=== PATIENT | female | born 1955 | race Caucasian/White ===

== ENCOUNTER 2022-01-19 08:31 | Outpatient (REF) | payer MEDICARE, SELFPAY ==
[2022-01-19 11:03] LABS: MANUAL DIFF FLAG NO
[2022-01-19 11:15] LABS: Basophils Percent Auto 0.5 % (0-2); Eosinophils Absolute Auto 0.1 X10*3/uL (0.0-0.4); Eosinophils Percent Auto 0.8 % (0-4); Hemoglobin 14.2 g/dl (12.0-16.0); Imm Gran Abs Auto 0.04 X10*3/uL (0.00-0.03); Imm Gran Pct Auto 0.5 % (0.0-0.4); Lymphocytes Absolute Auto 3.1 X10*3/uL (1.2-4.9); Lymphocytes Percent Auto 38.8 % (20-40); Mean Corpuscular HGB Conc 33.8 g/dl (31.0-35.0); Mean Corpuscular Hemoglobin 31.1 pg (27.0-33.0); Mean Corpuscular Volume 92.1 fL (80.0-98.0); Mean Platelet Volume 9.5 fL (9.4-12.3); Monocytes Absolute Auto 0.5 X10*3/uL (0.1-1.2); Monocytes Percent Auto 6.5 % (2-11); Neutrophils Absolute Auto 4.2 x10*3/uL (2.0-8.3); Neutrophils Percent Auto 52.9 % (45-73); Platelet Count 312 X10*3/uL (160-400); Red Blood Count 4.56 X10*6/uL (4.20-5.50); Red Cell Distribution Width 13.3 % (11.0-16.0)
[2022-01-19 11:19] LABS: Appearance Urine CLEAR; Color Urine YELLOW; Glucose Urine UA NEG (NEG); Leukocyte Esterase Urine NEG (NEG); Nitrite Urine NEG (NEG); Urine Blood NEG (NEG); Urine Ketones NEG (NEG); Urine Protein NEG (NEG-TRACE)
[2022-01-19 11:25] LABS: Alanine Aminotransferase 17 U/L (0-31); Albumin Level 4.1 g/dL (3.5-5.0); Alkaline Phosphatase 75 U/L (39-117); Anion Gap 10 (12-20); Aspartate Amino Transferase 17 U/L (5-31); Bilirubin Total 0.3 mg/dL (0.0-1.0); Blood Urea Nitrogen 18 mg/dL (9-16); Carbon Dioxide 29 mmol/L (22-29); Chloride 103 mmol/L (96-108); Cholesterol 299 mg/dL; Estimated Glomerular Filt Rate 59; Glucose Fasting 109 mg/dL (60-99); HDL Cholesterol 50 mg/dL; LDL Cholesterol Calculated 175 mg/dl; Potassium 4.1 mmol/L (3.3-5.1); Sodium 138 mmol/L (135-145); Total Protein 7.6 g/dL (6.5-8.0); Triglycerides 373 mg/dL
[2022-01-19 11:51] LABS: TSH reflex Free T4 2.97 uIU/mL (0.32-4.0); Vitamin D 25-OH Total 55.4 ng/mL (>30)
== END 2022-01-19 08:32 | disposition home or self-care (01) ==
LOC: HO.HMGCLDS 08:31
PROVIDERS: PCP Internal Medicine; Visit Provider Internal Medicine
DX: Z00.01 Encounter for general adult medical examination with abnormal findings (principal); F32.A Depression, unspecified; F41.9 Anxiety disorder, unspecified; G43.909 Migraine, unspecified, not intractable, without status migrainosus; I10 Essential (primary) hypertension; E78.2 Mixed hyperlipidemia
CPT/HCPCS: 36415; 80053; 80061; 81003; 82306; 84443; 85025

== ENCOUNTER → 2022-03-04 07:02 | Outpatient (BNVA) | payer MEDICARE, SELFPAY | PROVIDERS: PCP Internal Medicine; Referring Provider Internal Medicine; Visit Provider Nurse Practitioner | DX: R19.5 Other fecal abnormalities (principal) | CPT/HCPCS: 99202 ==

== ENCOUNTER 2022-04-25 10:06 | Outpatient (REF) | payer MEDICARE, SELFPAY ==
[2022-04-25 11:27] LABS: Estimated Average Glucose 108 mg/dL; Hemoglobin A1c % 5.4 %
[2022-04-25 11:56] LABS: Alanine Aminotransferase 27 U/L (0-31); Aspartate Amino Transferase 25 U/L (5-31); Cholesterol 220 mg/dL; Glucose Fasting 105 mg/dL (60-99); HDL Cholesterol 46 mg/dL; LDL Cholesterol Calculated 104 mg/dl; Triglycerides 353 mg/dL
== END 2022-04-25 10:07 | disposition home or self-care (01) ==
LOC: HO.HMGCLDS 10:06
PROVIDERS: PCP Internal Medicine; Visit Provider Internal Medicine
DX: I10 Essential (primary) hypertension (principal); E78.2 Mixed hyperlipidemia; R73.01 Impaired fasting glucose
CPT/HCPCS: 36415; 80061; 82947; 83036; 84450; 84460

== ENCOUNTER 2022-09-01 07:59 | Outpatient (REF) | payer MEDICARE, SELFPAY ==
--- NOTE | ~2022-09-01 | MM_ITS ---
EXAMINATION: MM SCREENING DIGITAL BREAST TOMOSYNTHESIS, BILATERAL CLINICAL INFORMATION: Screening. Asymptomatic. History of bilateral breast cancer with lumpectomies. COMPARISON: Mammography: April 20, 2017 and studies dating back to July 08, 2014 TECHNIQUE: Digital breast tomosynthesis is performed in both the craniocaudal and mediolateral oblique views along with computer-aided detection (CAD). Synthesized 2D images are generated from the tomosynthesis. FINDINGS: There are scattered areas of fibroglandular density (ACR BI-RADS breast composition Category b). There are no new significant masses, abnormal calcifications, or other abnormalities. Bilateral postsurgical change again seen. MM/MM tomosynthesis screening BI IMPRESSION: No significant changes from prior exam. ASSESSMENT: BI-RADS 2: Benign RECOMMENDATION: Routine annual mammography screening. This patient's information was entered into a reminder system with a target due date for their next mammogram.
== END 2022-09-01 08:00 | disposition home or self-care (01) ==
LOC: HO.MAMMO 07:59
PROVIDERS: Visit Provider Internal Medicine
DX: Z12.31 Encounter for screening mammogram for malignant neoplasm of breast (principal)
CPT/HCPCS: 77063; 77067

== ENCOUNTER 2023-01-16 08:15 | Outpatient (REF) | payer MEDICARE, SELFPAY ==
[2023-01-16 12:40] LABS: Alanine Aminotransferase 16 U/L (0-31); Anion Gap 14 (12-20); Aspartate Amino Transferase 19 U/L (5-31); Blood Urea Nitrogen 18 mg/dL (9-16); Calcium 9.4 mg/dL (8.4-10.2); Carbon Dioxide 29 mmol/L (22-29); Chloride 102 mmol/L (96-108); Cholesterol 258 mg/dL; Estimated Glomerular Filt Rate 60; Glucose Fasting 104 mg/dL (60-99); HDL Cholesterol 61 mg/dL; LDL Cholesterol Calculated 143 mg/dl; Sodium 141 mmol/L (135-145); Triglycerides 273 mg/dL
== END 2023-01-16 08:16 | disposition home or self-care (01) ==
LOC: HO.HMGCLDS 08:15
PROVIDERS: Internal Medicine; PCP Internal Medicine; Visit Provider Internal Medicine
DX: I10 Essential (primary) hypertension (principal); R73.01 Impaired fasting glucose; E78.2 Mixed hyperlipidemia
CPT/HCPCS: 36415; 80048; 80061; 84450; 84460

== ENCOUNTER 2023-05-15 09:35 | Outpatient (REF) | payer MEDICARE, SELFPAY ==
[2023-05-15 12:34] LABS: Alanine Aminotransferase 17 U/L (0-31); Alkaline Phosphatase 74 U/L (39-117); Anion Gap 15 (12-20); Aspartate Amino Transferase 19 U/L (5-31); Bilirubin Direct 0.1 mg/dL (0.0-0.5); Bilirubin Total 0.5 mg/dL (0.0-1.0); Blood Urea Nitrogen 13 mg/dL (9-16); Calcium 9.9 mg/dL (8.4-10.2); Carbon Dioxide 27 mmol/L (22-29); Chloride 103 mmol/L (96-108); Cholesterol 214 mg/dL; Estimated Glomerular Filt Rate 57; Glucose Fasting 100 mg/dL (60-99); HDL Cholesterol 54 mg/dL; LDL Cholesterol Calculated 111 mg/dl; Potassium 3.8 mmol/L (3.3-5.1); Sodium 141 mmol/L (135-145); Total Protein 7.6 g/dL (6.5-8.0); Triglycerides 249 mg/dL; Vitamin D 25-OH Total 55.5 ng/mL (>30)
== END 2023-05-15 09:36 | disposition home or self-care (01) ==
LOC: HO.HMGCLDS 09:35
PROVIDERS: PCP Internal Medicine; Visit Provider Internal Medicine
DX: I10 Essential (primary) hypertension (principal); E78.2 Mixed hyperlipidemia; N95.9 Unspecified menopausal and perimenopausal disorder; R73.01 Impaired fasting glucose
CPT/HCPCS: 36415; 80048; 80061; 80076; 82306

== ENCOUNTER 2023-05-18 15:04 | Outpatient (AMB) | payer MEDICARE, SELFPAY ==
--- NOTE | 2023-05-18 15:36 | A.OFFPC_ITS ---
Vital Signs 05/18/23 15:39 Height 5 ft Weight 148 lb BMI 28.9 BP 150/90 H Blood Pressure Location Lt brachial Position Sitting Pulse 68 Pulse Source Pulse Oximeter Pulse Oximetry (%) 96 Oxygen Delivery Method Room Air Intake Visit Reasons: 3 month f/u HTN Intake Note: Pt is here today for her 3 mo. f/u HTN Allergies codeine [CODEINE] Adverse Reaction (Intermediate, Verified 10/04/23 13:30) N/V oxycodone [From PERCOCET] Adverse Reaction (Intermediate, Verified 10/04/23 13:30) N/V penicillin Allergy (Unknown, Uncoded 10/04/23 13:30) rash, hive Medication List - Last Reconciled 05/18/23 by Neelam Nobles MD ascorbic acid (vitamin C) 1 g orally Patient takes PRN when she feels a cold starting; cholecalciferol (vitamin D3) 50 mcg PO DAILY losartan 50 mg PO DAILY metoprolol succinate ER 50 mg PO DAILY xulswoby-vpl-qzgl-FA-lutein 8 mg iron-400 mcg-300 mcg (Centrum Silver Women) 1 tab PO DAILY rosuvastatin 5 mg PO DAILY sumatriptan succinate 100 mg PO Q2-4H PRN Tobacco use date assessed: 05/18/23 Fall risk assessment: No Falls in past year Last assessed Fall Risk: 05/18/23 Dental Screening Dental Screen Date: 05/18/23 Did you have a dental visit in the last 12 months?: Yes Did you have a dental problem in the last 6 months where you did not have access to dental care?: No Was dental information given to patient?: Patient has dentist HPI 3 month f/u HTN HPI Details 67-year-old lady here today for follow-u p on her hypertension currently taking losartan 50 mg daily, metoprolol succinate ER 50 mg daily. Blood pressure today is higher than last check. Recent fasting labs done showed electrolytes within normal limits as well as liver enzymes and cholesterol levels, except for triglycerides which are still high. Patient states that she has been under lot of stress lately as her brother is currently in the custodial refusing all treatment, and her older sister was a victim of an internet scam. She also has not been eating well, and no regular exercise. [facility] Medical History Positive colorectal cancer screening using Cologuard test Impaired fasting glucose ADD (attention deficit disorder) History of bilateral breast cancer Bilateral hearing loss Migraine headache Anxiety and depression Essential hypertension Mixed dyslipidemia Surgical History History of lumpectomy of left breast History of appendectomy History of lumpectomy of right breast Family History Father Mental health disorder Lung cancer Parkinson's disease Social History Household Members: None Housing: House Are you a primary restorative care technician to a significant other at home: No Do you presently have visiting nurse or other home services: No Patient Tobacco Use Status: Former Tobacco user Tobacco use type: Cigarette e-Cigarette/Vaping Use: Former Use service: No Current occupational status: retired Cognitive needs: No Hearing needs: No Vision needs: Yes Questionnaire PHQ-9 Over the last 2 weeks, how often have you been bothered by any of the following problems? Depression Screening Interpretation: Negative Source: Developed by Drs. Talon Grant, Ambrocio Linder and colleagues, with an educational keyana from [employer]. Thrive Questionnaire Date Thrive assessed: 04/26/22 AUDIT C Alcohol Use Questionnaire (AUDIT-C) 1. How often do you have a drink containing alcohol?: Monthly or less 2. How many drinks containing alcohol do you have on a typical day when you are drinking?: 1 or 2 3. How often do you have six or more drinks on one occasion?: Never Total Score: 1 FRANCISCO-7 AMB Questionnaire FRANCISCO-7 Date FRANCISCO - 7 assessed: 04/26/22 Source: Developed by Drs. Talon Grant, Bekah Riojas, Ambrocio Perez and colleagues, with an educational keyana from [employer]. Review of Systems Const Denies fatigue and Denies headache(s) ENT Denies vertigo, Denies headache(s), Reports hearing loss (Wears hearing aids), Denies nasal congestion and Denies disequilibrium Card Denies chest pain, Denies rapid heart rate, Denies irregular heart rhythm and Denies dyspnea Resp Denies cough and Denies dyspnea GI Denies abdominal pain, Denies change in bowel habits, Denies heartburn and Denies nausea Reports no additional complaints Musc Reports no additional complaints Neuro Denies vertigo, Denies headache(s), Denies Sensory deficit (Neuro) and Denies disequilibrium Psych Reports as per HPI Endo Reports no additional complaints and Denies fatigue Physical exam (Primary Care) Vital Signs: Last Vital Signs Pulse 68 05/18/23 15:39 BP 150/90 H 05/18/23 15:39 Pulse Ox 96 05/18/23 15:39 Oxygen Delivery Method Room Air 05/18/23 15:39 BMI result Body Mass Index 28.9 Tobacco/Smoking Status: Tobacco use Status Tobacco use date assessed 05/18/23 05/18/23 15:41 Patient Tobacco Use Status Former Tobacco user 05/18/23 15:38 Tobacco use type Cigarette 05/18/23 15:38 e-Cigarette/Vaping Use Former Use 05/18/23 15:38 Depression Screening Interpretation: Negative Thrive Assessment: Date of Thrive Assessment Date Thrive assessed 04/26/22 05/18/23 15:38 Const Other: Alert oriented x3, no acute distress noted ambulatory normal gait HENMT Head: Yes normocephalic Ears: hearing grossly impaired (Wears hearing aids) General nose exam: Normal external nose present and No nasal discharge present Face and sinus: Yes face symmetric Mouth: moist mucous membranes Eyes General: appearance normal, both eyes and all related structures Neck Other: Supple, no lymphadenopathy, thyroid gland nonpalpable Resp Auscultation: clear to auscultation bilaterally Cardio Other: S1-S2 present regular rate and rhythm GI Other: Normal bowel sounds, soft, nontender, no mass palpated Skin General skin exam: no rashes or lesions noted Neuro Sensory Exam: No Sensory deficit (Neuro) Extrem General: Yes full ROM, Yes no joint enlargement, Yes no pedal edema and Yes normal gait Psych Appearance: grossly normal and well kempt Mental Status: mental status grossly normal Speech and movement: Normal speech and movement present Affect: normal affect Attitude: cooperative Results Reviewed Results Reviewed: ENTERED: 05/15/23-68 MARCELLA HANKS: ORDERED: Liver Panel, Met Prof Fast, Lipid Panel, Vitamin D 25-OH Test Result Flag Reference Site Sodium 141 135-145 mmol/L Potassium 3.8 3.3-5.1 mmol/L CL 103 96-108 mmol/L CO2 27 22-29 mmol/L Gap 15 12-20 BUN 13 9-16 mg/dL Creat 0.97 0.5-1.4 mg/dL EGFR 57 NOTE: For [place] individuals, multiply the result by 1.210. Chronic Kidney Disease: Estimated GFR < 60 mL/min/1.73m2 Severe Kidney Disease: Estimated GFR < 15 mL/min/1.73m2 FBS 100 H 60-99 mg/dL A fasting glucose from 100-125 mg/dl is considered impaired (pre-diabetes). CA 9.9 8.4-10.2 mg/dL Total Bili 0.5 0.0-1.0 mg/dL Direct Bili 0.1 0.0-0.5 mg/dL AST (GOT) 19 5-31 U/L ALT (GPT) 17 0-31 U/L Protein, Total 7.6 6.5-8.0 g/dL Alb 4.0 3.5-5.0 g/dL Triglyceride 249 mg/dL Desirable Triglyceride: less than 150 mg/dL Borderline High Triglyceride 150-199 mg/dL High Triglyceride: 200-499 mg/dL Very High Triglyceride: greater than or equal to 5OO mg/dL Chol 214 mg/dL Desirable Cholesterol: less than 200 mg/dL Borderline High Cholesterol: 200-239 mg/dL High Cholesterol: greater than 239 mg/dL LDL Calculated 111 mg/dl Desirable LDL: less than 100 mg/dL Near Optimal/Above Optimal LDL: 110-129 mg/dL Borderline High LDL: 130-159 mg/dL High LDL: 160-189 mg/dL Very High LDL: greater than or equal to 190 mg/dL HDL 54 mg/dL Desirable HDL: greater than 40 mg/dL Note: This HDL assay may give artificially low results in patients with liver disease. Alk Phos 74 39-117 U/L Vit D 25-OH Tot 55.5 >30 ng/mL Health Based Reference Values* < 20 ng/mL Deficient 20-30 ng/mL Insufficient > 30 ng/mL Sufficient Assessment and Plan Assessment & Plan (1) Essential hypertension: Code(s): I10 - Essential (primary) hypertension Plan: Blood pressure not at goal of less than 130/80. Will increase dose of losartan to 100 mg taken once a day in the morning and continue with metoprolol 50 mg once at night. Reinforced importance of following a low sodium diet, getting regular exercise, and lowering stress levels. Follow-up in 3 months (2) Mixed dyslipidemia: Code(s): E78.2 - Mixed hyperlipidemia Plan: Reviewed recent fasting lipid profile with patient with levels within normal limits . Continue with rosuvastatin 5 mg daily , in addition to adherence to low-cholesterol diet and regular exercise, at least 30 minutes 3 to 4 times a week. Advised patient to make healthy food choices, eat more fruits, vegetables, whole grains, wild caught fish and low-fat dairy. Limit amount of meat and fried or fatty food products, as well as processed foods and fast foods. Medications: Changed From losartan take in am 50 mg PO DAILY 30 tabs 1RF To losartan take in am 100 mg PO DAILY 90 tabs 1RF Coding Level of Care Code Est Pt Level 3 (89972) Diagnoses Essential hypertension I10 Mixed dyslipidemia E78.2
[2023-05-18 15:39] VITALS: BP 150/90; PULSE 68; O2SAT 96; BMI 28.9
== END 2023-05-18 16:02 | disposition home or self-care (01) ==
PROVIDERS: PCP Internal Medicine; Visit Provider Internal Medicine
DX: I10 Essential (primary) hypertension (principal); E78.2 Mixed hyperlipidemia
CPT/HCPCS: 99213

== ENCOUNTER 2023-08-16 12:02 | Outpatient (REF) | payer MEDICARE, SELFPAY ==
[2023-08-16 14:07] LABS: Alanine Aminotransferase 17 U/L (0-31); Aspartate Amino Transferase 20 U/L (5-31)
== END 2023-08-16 12:03 | disposition home or self-care (01) ==
LOC: HO.HMGCLDS 12:02
PROVIDERS: PCP Internal Medicine; Visit Provider Internal Medicine
DX: R73.01 Impaired fasting glucose (principal); E78.2 Mixed hyperlipidemia; N95.9 Unspecified menopausal and perimenopausal disorder; I10 Essential (primary) hypertension
CPT/HCPCS: 36415; 84450; 84460

== ENCOUNTER 2023-08-18 12:51 | Outpatient (AMB) | payer MEDICARE, SELFPAY ==
[2023-08-18 12:52] VITALS: BP 152/88; PULSE 73; O2SAT 97; BMI 29.9
--- NOTE | 2023-08-18 12:53 | A.OFFPC_ITS ---
Vital Signs 08/18/23 12:52 Height 5 ft Weight 153 lb BMI 29.9 BP 152/88 H Blood Pressure Location Lt brachial Position Sitting Pulse 73 Pulse Source Pulse Oximeter Pulse Oximetry (%) 97 Intake Visit Reasons: 3 Month F/Up Intake Note: pt is here for 3 month f/u Manager Technical Required: No Accompanied by: Self / Same As Patient Allergies codeine [CODEINE] Adverse Reaction (Intermediate, Verified 08/18/23 13:21) N/V oxycodone [From PERCOCET] Adverse Reaction (Intermediate, Verified 08/18/23 13:21) N/V penicillin Allergy (Unknown, Uncoded 08/18/23 13:21) rash, hive Medication List - Last Reconciled 08/18/23 by Neelam Nobles MD ascorbic acid (vitamin C) 1 g orally Patient takes PRN when she feels a cold starting; cholecalciferol (vitamin D3) 50 mcg PO DAILY losartan 100 mg PO DAILY metoprolol succinate ER 50 mg PO DAILY mkefdzij-mhq-weof-FA-vit K-lut 8 mg iron-400 mcg-50 mcg (Centrum Silver Women) 1 tab PO DAILY rosuvastatin 5 mg PO DAILY sumatriptan succinate 100 mg PO Q2-4H PRN Tobacco use date assessed: 05/18/23 Fall risk assessment: No Falls in past year Last assessed Fall Risk: 08/18/23 Dental Screening Dental Screen Date: 08/18/23 Did you have a dental visit in the last 12 months?: Yes Did you have a dental problem in the last 6 months where you did not have access to dental care?: No Was dental information given to patient?: Patient has dentist HPI 3 Month F/Up HPI Details 67-year-old lady with hypertension, and dyslipidemia, here today her follow-up. 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 Blood pressure today is little elevated, patient states that she has been taking her metoprolol and losartan as directed. Denies any chest pain, no dizziness or lightheadedness. [facility] Medical History Positive colorectal cancer screening using Cologuard test Impaired fasting glucose ADD (attention deficit disorder) History of bilateral breast cancer Bilateral hearing loss Migraine headache Anxiety and depression Essential hypertension Mixed dyslipidemia Surgical History History of lumpectomy of left breast History of appendectomy History of lumpectomy of right breast Family History Father Mental health disorder Lung cancer Parkinson's disease Social History Household Members: None Housing: House Are you a primary palliative care nurse practitioner to a significant other at home: No Do you presently have visiting nurse or other home services: No Patient Tobacco Use Status: Former Tobacco user Tobacco use type: Cigarette e-Cigarette/Vaping Use: Former Use service: No Current occupational status: retired Cognitive needs: No Hearing needs: No Vision needs: Yes Questionnaire PHQ-9 Over the last 2 weeks, how often have you been bothered by any of the following problems? 1. Little interest or pleasure in doing things: several days 2. Feeling down, depressed, or hopeless: not at all 3. Trouble falling or staying asleep, or sleeping too much: several days 4. Feeling tired or having little energy: several days 5. Poor appetite or overeating: several days 6. Feeling bad about yourself - or that you are a failure or have let yourself or your family down: not at all 7. Trouble concentrating on things, such as reading the newspaper or watching television: not at all 8. Moving or speaking so slowly that other people could have noticed. Or the opposite - being so fidgety or restless that you have been moving around a lot more than usual: not at all 9. Thoughts that you would be better off or of hurting yourself in some way: not at all Total score: 4 Depression Screening Interpretation: Negative 07935 - PHQ-9 Billing: Yes Source: Developed by Drs. Talon Grant, Bekah Riojas, Ambrocio Perez and colleagues, with an educational keyana from [employer] Thrive Questionnaire Date Thrive assessed: 08/18/23 I am a: Patient What is your living situation today?: I have a steady place to live Within the past 12 months, did the food you bought not last and you didn't have the money to get more?: Never true Within the past 12 months, did you worry whether your food would run out before you got money to buy more?: Never true Do you have trouble paying for medicines?: No Do you have trouble getting transportation to medical appointments?: No Do you have trouble paying your heating and electricity bill?: No Do you have trouble taking care of your child, family member or friend?: No Do you have trouble with day-to-day activities such as bathing, preparing meals, shopping, managing finances, etc.?: No Are you currently unemployed and looking for a job?: No Are you interested in more education?: No FRANCISCO-7 AMB Questionnaire FRANCISCO-7 Date FRANCISCO - 7 assessed: 08/18/23 Feeling nervous, anxious, or on edge: 1 = Several days Not being able to stop or control worryin = Several days Worrying too much about different things: 1 = Several days Trouble relaxin = Not at all Being so restless that it is hard to sit still: 0 = Not at all Becoming easily annoyed or irritable: 0 = Not at all Feeling afraid as if something awful might happen: 0 = Not at all Total FRANCISCO-7 score (0-4 normal; 5-9 mild; 10-14 moderate; 15-21 severe): 3 Source: Developed by Drs. Talon Grant, Bekah Riojas, Ambrocio Perez and colleagues, with an educational keyana from [employer] FRANCISCO-7 Assessment Billing FRANCISCO-7 Assessment Tool: FRANCISCO-7 Assessment 53100 Review of Systems Const Reports difficulty sleeping, Denies fatigue, Denies headache(s) and Denies poor appetite ENT Denies vertigo, Denies headache(s), Reports hearing loss (Wears hearing aids), Denies nasal congestion and Denies disequilibrium Card Denies chest pain, Denies rapid heart rate, Denies irregular heart rhythm and Denies dyspnea Resp Denies cough and Denies dyspnea GI Denies abdominal pain, Denies melena, Denies bloating, Denies hematochezia, Denies change in bowel habits, Denies heartburn and Denies nausea Reports no additional complaints Musc Reports no additional complaints Neuro Denies vertigo, Denies headache(s), Denies Sensory deficit (Neuro) and Denies disequilibrium Psych Reports as per HPI Endo Reports no additional complaints and Denies fatigue Pablo/Lymph Denies easy bleeding and Denies easy bruising Physical exam (Primary Care) Vital Signs: Last Vital Signs Pulse 73 08/18/23 12:52 BP 152/88 H 08/18/23 12:52 Pulse Ox 97 08/18/23 12:52 BMI result Body Mass Index 29.9 Tobacco/Smoking Status: Tobacco use Status Tobacco use date assessed 05/18/23 08/18/23 12:53 Patient Tobacco Use Status Former Tobacco user 08/18/23 12:53 Tobacco use type Cigarette 08/18/23 12:53 e-Cigarette/Vaping Use Former Use 08/18/23 12:53 PHQ-9: PHQ-9 Score PHQ-9: Total score 4 08/18/23 13:39 Depression Screening Interpretation: Negative Thrive Assessment: Date of Thrive Assessment Date Thrive assessed 08/18/23 08/18/23 13:39 Const Other: Alert oriented x3, no acute distress noted ambulatory normal gait HENMT Head: Yes normocephalic Ears: hearing grossly impaired (Wears hearing aids) General nose exam: Normal external nose present and No nasal discharge present Face and sinus: Yes face symmetric Mouth: moist mucous membranes Eyes General: appearance normal, both eyes and all related structures Neck Other: Supple, no lymphadenopathy, thyroid gland nonpalpable Resp Auscultation: clear to auscultation bilaterally Cardio Other: S1-S2 present regular rate and rhythm GI Other: Normal bowel sounds, soft, nontender, no mass palpated Skin General skin exam: no rashes or lesions noted Neuro Sensory Exam: No Sensory deficit (Neuro) Extrem General: Yes full ROM, Yes no joint enlargement, Yes no pedal edema and Yes normal gait Psych Appearance: grossly normal and well kempt Mental Status: mental status grossly normal Speech and movement: Normal speech and movement present Affect: normal affect Attitude: cooperative Assessment and Plan Assessment & Plan (1) Essential hypertension: Code(s): I10 - Essential (primary) hypertension Plan: Will discontinue losartan and switched to losartan-HCTZ 100-12.5 mg per tablet to take once a day in the morning, continue with metoprolol succinate ER 50 mg at bedtime, Blood pressure goal is less than 130/80. Reinforced importance of following a low sodium diet, getting regular exercise, and lowering stress levels. Schedule follow-up office visit in 1 month to check blood pressure, advised to do fasting beta month basic metabolic panel, lipids least a couple of days prior to office visit (2) Mixed dyslipidemia: Code(s): E78.2 - Mixed hyperlipidemia Plan: Continue with rosuvastatin, will check fasting lipids prior to next appointment in a month (3) Impaired fasting glucose: Code(s): R73.01 - Impaired fasting glucose Plan: Your fasting blood sugars were elevated above 100 mg/dL. Impaired glucose metabolism O2 at risk for developing diabetes mellitus type 2, as well as heart attack and stroke later on. Lifestyle changes at just weight loss, healthy eating habits, and regular exercise are important, and can prevent the progression to diabetes (4) Acute anxiety: Code(s): F41.9 - Anxiety disorder, unspecified Plan: Prescription sent for hydroxyzine 25 mg, take 1/2-1 tablet at bedtime as needed for acute episodes of anxiety and may help with difficulty sleeping. Orders: Orders Vitamin D 25-OH Total 1 Month E78.2 - Mixed hyperlipidemia, I10 - Essential (primary) hypertension, R73.01 - Impaired fasting glucose Basic Metabolic Panel Fasting 1 Month E78.2 - Mixed hyperlipidemia, I10 - Essential (primary) hypertension, R73.01 - Impaired fasting glucose Lipid Panel 1 Month E78.2 - Mixed hyperlipidemia, I10 - Essential (primary) hypertension, R73.01 - Impaired fasting glucose Alanine Aminotransferase 1 Month E78.2 - Mixed hyperlipidemia, I10 - Essential (primary) hypertension, R73.01 - Impaired fasting glucose Aspartate Amino Transferase 1 Month E78.2 - Mixed hyperlipidemia, I10 - Essential (primary) hypertension, R73.01 - Impaired fasting glucose Medications: New losartan-hydrochlorothiazide 100-12.5 mg 1 tab PO DAILY 90 tabs 1RF I10 - Essential (primary) hypertension Refilled hydroxyzine HCl 25 mg PO BEDTIME PRN 30 tabs 0RF itching F32.A - Depression, unspecified, F41.9 - Anxiety disorder, unspecified rosuvastatin 5 mg PO DAILY 90 tabs 4RF metoprolol succinate ER 50 mg PO DAILY 90 tabs 4RF G43.909 - Migraine, unspe cified, not intractable, without status migrainosus, I10 - Essential (primary) hypertension Discontinued losartan take in am Discontinued Reason: Doctor's Order 100 mg PO DAILY 90 tabs 1RF Coding Level of Care Code Est Pt Level 4 (58376) Diagnoses Essential hypertension I10 Mixed dyslipidemia E78.2 Impaired fasting glucose R73.01 Acute anxiety F41.9 Additional Codes FRANCISCO-7 Assessment Billing - FRANCISCO-7 Assessment Tool: FRANCISCO-7 Assessment 36227 ([id number])
== END 2023-08-18 14:23 | disposition home or self-care (01) ==
PROVIDERS: PCP Internal Medicine; Visit Provider Internal Medicine
DX: I10 Essential (primary) hypertension (principal); E78.2 Mixed hyperlipidemia; R73.01 Impaired fasting glucose; F41.9 Anxiety disorder, unspecified
CPT/HCPCS: 99214

== ENCOUNTER 2023-10-02 10:01 | Outpatient (REF) | payer MEDICARE, SELFPAY ==
[2023-10-02 14:12] LABS: Alanine Aminotransferase 16 U/L (0-31); Anion Gap 15 (12-20); Aspartate Amino Transferase 23 U/L (5-31); Blood Urea Nitrogen 34 mg/dL (9-16); Carbon Dioxide 28 mmol/L (22-29); Chloride 98 mmol/L (96-108); Cholesterol 195 mg/dL (<200); Estimated Glomerular Filt Rate 35; Glucose Fasting 122 mg/dL (60-99); HDL Cholesterol 40 mg/dL (>40); LDL Cholesterol Calculated 94 mg/dL (<100); Sodium 137 mmol/L (135-145); Triglycerides 309 mg/dL (<150)
== END 2023-10-02 10:02 | disposition home or self-care (01) ==
LOC: HO.HMGCLDS 10:01
PROVIDERS: PCP Internal Medicine; Visit Provider Internal Medicine
DX: I10 Essential (primary) hypertension (principal); E78.2 Mixed hyperlipidemia; R73.01 Impaired fasting glucose
CPT/HCPCS: 36415; 80048; 80061; 82306; 84450; 84460

== ENCOUNTER 2023-10-04 12:49 | Outpatient (AMB) | payer MEDICARE, SELFPAY ==
--- NOTE | 2023-10-04 13:05 | A.OFFPC_ITS ---
Vital Signs 10/04/23 13:06 Height 5 ft Weight 146 lb BMI 28.5 BP 108/70 Blood Pressure Location Rt brachial Position Sitting Pulse 60 Pulse Source Pulse Oximeter Pulse Oximetry (%) 98 Oxygen Delivery Method Room Air Intake Visit Reasons: 1 month F/U CX 09/15 and R/S Intake Note: Patient here for follow up on HTN & labs Allergies codeine [CODEINE] Adverse Reaction (Intermediate, Verified 10/04/23 13:30) N/V oxycodone [From PERCOCET] Adverse Reaction (Intermediate, Verified 10/04/23 13:30) N/V penicillin Allergy (Unknown, Uncoded 10/04/23 13:30) rash, hive Medication List - Last Reconciled 10/04/23 by Neelam Nobles MD ascorbic acid (vitamin C) 1 g orally Patient takes PRN when she feels a cold starting; cholecalciferol (vitamin D3) 50 mcg PO DAILY losartan-hydrochlorothiazide 100-12.5 mg 1 tab PO DAILY metoprolol succinate ER 50 mg PO DAILY cpinixem-dll-gezb-FA-vit K-lut 8 mg iron-400 mcg-50 mcg (Centrum Silver Women) 1 tab PO DAILY rosuvastatin 5 mg PO DAILY sumatriptan succinate 100 mg PO Q2-4H PRN MDD 2 tabs/24 hrs Tobacco use date assessed: 05/18/23 HPI 1 month F/U CX 09/15 and R/S HPI Details 67-year-old lady here today for follow-u p on her hypertension, currently taking losartan HCTZ 100-12.5 mg daily and metoprolol succinate ER 50 mg once a day. Blood pressure has been stable and controlled on current treatment. She is also here for follow-up on her lipids, currently taking rosuvastatin 5 mg once a day. Latest fasting labs showed elevated triglycerides but LDL cholesterol and HDL cholesterol within normal limits ON LICENSE OF [facility] Medical History Positive colorectal cancer screening using Cologuard test Impaired fasting glucose ADD (attention deficit disorder) History of bilateral breast cancer Bilateral hearing loss Migraine headache Anxiety and depression Essential hypertension Mixed dyslipidemia Surgical History History of lumpectomy of left breast History of appendectomy History of lumpectomy of right breast Family History Father Mental health disorder Lung cancer Parkinson's disease Social History Household Members: None Housing: House Are you a primary day care teacher to a significant other at home: No Do you presently have visiting nurse or other home services: No Patient Tobacco Use Status: Former Tobacco user Tobacco use type: Cigarette e-Cigarette/Vaping Use: Former Use service: No Current occupational status: retired Cognitive needs: No Hearing needs: No Vision needs: Yes Questionnaire Thrive Questionnaire Date Thrive assessed: 08/18/23 FRANCISCO-7 AMB Questionnaire FRANCISCO-7 Date FRANCISCO - 7 assessed: 08/18/23 Source: Developed by Drs. Talon Grant, Bekah Riojas, Ambrocio Perez and colleagues, with an educational keyana from [employer]. Review of Systems Const Denies fatigue, Denies headache(s) and Denies poor appetite ENT Denies vertigo, Denies headache(s), Reports hearing loss (Wears hearing aids), Denies nasal congestion and Denies disequilibrium Card Denies chest pain, Denies rapid heart rate, Denies irregular heart rhythm and Denies dyspnea Resp Denies cough and Denies dyspnea GI Denies abdominal pain, Denies melena, Denies bloating, Denies hematochezia, Denies change in bowel habits, Denies heartburn and Denies nausea Reports no additional complaints Musc Reports no additional complaints Neuro Denies vertigo, Denies headache(s), Denies Sensory deficit (Neuro) and Denies disequilibrium Psych Reports as per HPI Endo Reports no additional complaints and Denies fatigue Pablo/Lymph Denies easy bleeding and Denies easy bruising Physical exam (Primary Care) Vital Signs: Last Vital Signs Pulse 60 10/04/23 13:06 BP 108/70 10/04/23 13:06 Pulse Ox 98 10/04/23 13:06 Oxygen Delivery Method Room Air 10/04/23 13:06 BMI result Body Mass Index 28.5 Tobacco/Smoking Status: Tobacco use Status Tobacco use date assessed 05/18/23 10/04/23 13:06 Patient Tobacco Use Status Former Tobacco user 10/04/23 13:06 Tobacco use type Cigarette 10/04/23 13:06 e-Cigarette/Vaping Use Former Use 10/04/23 13:06 Thrive Assessment: Date of Thrive Assessment Date Thrive assessed 08/18/23 10/04/23 13:06 Const Other: Alert oriented x3, no acute distress noted ambulatory normal gait HENMT Head: Yes normocephalic Ears: hearing grossly impaired (Wears hearing aids) General nose exam: Normal external nose present and No nasal discharge present Face and sinus: Yes face symmetric Mouth: moist mucous membranes Eyes General: appearance normal, both eyes and all related structures Neck Other: Supple, no lymphadenopathy, thyroid gland nonpalpable Resp Auscultation: clear to auscultation bilaterally Cardio Other: S1-S2 present regular rate and rhythm GI Other: Normal bowel sounds, soft, nontender, no mass palpated Skin General skin exam: no rashes or lesions noted Neuro Sensory Exam: No Sensory deficit (Neuro) Extrem General: Yes full ROM, Yes no joint enlargement, Yes no pedal edema and Yes normal gait Psych Appearance: grossly normal and well kempt Mental Status: mental status grossly normal Speech and movement: Normal speech and movement present Affect: normal affect Attitude: cooperative Results Reviewed Results Reviewed: ENTERED: 10/02/23-[address]: ORDERED: Met Prof Fast, AST, ALT, Lipid Panel, Vitamin D 25-OH Test Result Flag Reference Site Sodium 137 135-145 mmol/L Potassium 4.0 3.3-5.1 mmol/L CL 98 96-108 mmol/L CO2 28 22-29 mmol/L Gap 15 12-20 BUN 34 H 9-16 mg/dL Creat 1.49 H 0.5-1.4 mg/dL EGFR 35 NOTE: For -[place] individuals, multiply the result by 1.210. Chronic Kidney Disease: Estimated GFR < 60 mL/min/1.73m2 Severe Kidney Disease: Estimated GFR < 15 mL/min/1.73m2 FBS 122 H 60-99 mg/dL A fasting glucose from 100-125 mg/dl is considered i mpaired (pre-diabetes). CA 10.0 8.4-10.2 mg/dL AST (GOT) 23 5-31 U/L ALT (GPT) 16 0-31 U/L Triglyceride 309 H <150 mg/dL Desirable Triglyceride: less than 150 mg/dL Borderline High Triglyceride 150-199 mg/dL High Triglyceride: 200-499 mg/dL Very High Triglyceride: greater than or equal to 5OO mg/dL Cholesterol 195 <200 mg/dL Desirable Cholesterol: less than 200 mg/dL Borderline High Cholesterol: 200-239 mg/dL High Cholesterol: greater than 239 mg/dL LDL Calculated 94 <100 mg/dL Desirable LDL: less than 100 mg/dL Near Optimal/Above Optimal LDL: 110-129 mg/dL Borderline High LDL: 130-159 mg/dL High LDL: 160-189 mg/dL Very High LDL: greater than or equal to 190 mg/dL HDL 40 L >40 mg/dL Desirable HDL: greater than 40 mg/dL Note: This HDL assay may give artificially low results in patients with liver disease. Vit D 25-OH Tot 93.0 >30 ng/mL Health Based Reference Values* < 20 ng/mL Deficient 20-30 ng/mL Insufficient > 30 ng/mL Sufficient Assessment and Plan Assessment & Plan (1) Impaired fasting glucose: Code(s): R73.01 - Impaired fasting glucose Plan: Your fasting blood sugars elevated above 100 mg/dL. Impaired glucose metabolism O2 at risk for developing diabetes mellitus type 2, as well as heart attack and stroke later on. Lifestyle changes at just weight loss, healthy eating habits, and regular exercise are important, and can prevent the progression to diabetes (2) Essential hypertension: Code(s): I10 - Essential (primary) hypertension Plan: Blood pressure at goal of less than 130/80. Continue with losartan-HCTZ 100- 12.5 mg taking 1 a day, and metoprolol succinate ER 50 mg 1 daily. Reinforced importance of following a low sodium diet, getting regular exercise, and lowering stress levels. (3) Mixed dyslipidemia: Code(s): E78.2 - Mixed hyperlipidemia Plan: Reviewed recent fasting lipid profile with patient with LDL cholesterol within normal limits but triglycerides elevated . Continue with rosuvastatin 5 mg daily , in addition to adherence to low-cholesterol diet and regular exercise, at least 30 minutes 3 to 4 times a week. Advised patient to make healthy food choices, eat more fruits, vegetables, whole grains, wild caught fish and low- fat dairy. Limit amount of meat and fried or fatty food products, as well as processed foods and fast foods. Follow-up scheduled with repeat fasting lipid panel in months. (4) Migraine headache: Code(s): G43.909 - Migraine, unspecified, not intractable, without status migrainosus Plan: Controlled with sumatriptan, refill sent Medications: Refilled sumatriptan succinate Take 1 tablet at the 1st sign of migraine headache, and may repeat another dose after 2 hours if headache not completely resolved. Maximum dose of 2 tablets in a 24 hour period 100 mg PO Q2-4H PRN 12 tabs 4RF migraine headache MDD 2 tabs/24 hrs Coding Level of Care Code Est Pt Level 4 (68207) Diagnoses Impaired fasting glucose R73.01 Essential hypertension I10 Mixed dyslipidemia E78.2 Migraine headache G43.909
[2023-10-04 13:06] VITALS: BP 108/70; PULSE 60; O2SAT 98; BMI 28.5
== END 2023-10-04 15:33 | disposition home or self-care (01) ==
PROVIDERS: PCP Internal Medicine; Visit Provider Internal Medicine
DX: R73.01 Impaired fasting glucose (principal); I10 Essential (primary) hypertension; E78.2 Mixed hyperlipidemia; G43.909 Migraine, unspecified, not intractable, without status migrainosus
CPT/HCPCS: 99214

== ENCOUNTER 2024-05-06 11:51 | Outpatient (REF) | payer MEDICARE, SELFPAY ==
[2024-05-06 14:04] LABS: Alanine Aminotransferase 22 U/L (0-31); Anion Gap 16 (12-20); Aspartate Amino Transferase 21 U/L (5-31); Blood Urea Nitrogen 28 mg/dL (9-16); Calcium 9.9 mg/dL (8.4-10.2); Carbon Dioxide 26 mmol/L (22-29); Chloride 101 mmol/L (96-108); Cholesterol 199 mg/dL (<200); Estimated Glomerular Filt Rate 50; Glucose Fasting 120 mg/dL (60-99); HDL Cholesterol 33 mg/dL (>40); Potassium 4.5 mmol/L (3.3-5.1); Sodium 138 mmol/L (135-145); Triglycerides 422 mg/dL (<150)
[2024-05-06 14:19] LABS: Vitamin D 25-OH Total 61.6 ng/mL (>30)
== END 2024-05-06 11:52 | disposition home or self-care (01) ==
LOC: HO.HMGCLDS 11:51
PROVIDERS: PCP Internal Medicine; Visit Provider Internal Medicine
DX: I10 Essential (primary) hypertension (principal); E78.2 Mixed hyperlipidemia; Z78.0 Asymptomatic menopausal state
CPT/HCPCS: 36415; 80048; 80061; 82306; 84450; 84460

== ENCOUNTER 2024-05-09 14:45 | Outpatient (AMB) | payer MEDICARE, SELFPAY ==
[2024-05-09 14:48] VITALS: BP 122/74; PULSE 69; O2SAT 94; BMI 29.1
--- NOTE | 2024-05-09 14:48 | MHC.PC.OV ---
Vital Signs 05/09/24 14:48 Height 5 ft Weight 149 lb BMI 29.1 BP 122/74 Blood Pressure Location Rt brachial Position Sitting Pulse 69 Pulse Source Pulse Oximeter Pulse Oximetry (%) 94 Oxygen Delivery Method Room Air Intake Visit Reasons: 6mnth f/u bp,cholesterol Intake Note: Pt is here today 6 month follow up on blood pressure and cholesterol. Allergies codeine [CODEINE] Adverse Reaction (Intermediate, Verified 08/09/24 09:08) N/V oxycodone [From PERCOCET] Adverse Reaction (Intermediate, Verified 08/09/24 09:08) N/V penicillin Allergy (Unknown, Uncoded 08/09/24 09:08) rash, hive Medication List - Last Reconciled 08/20/24 by Neelam Nobles MD ascorbic acid (vitamin C) 1 g orally Patient takes PRN when she feels a cold starting; cholecalciferol (vitamin D3) 50 mcg PO DAILY losartan-hydrochlorothiazide 100-12.5 mg 1 tab PO DAILY magnesium 250 mg PO DAILY metoprolol succinate ER 50 mg PO DAILY bvcafyra-ezx-slzv-FA-vit K-lut 8 mg iron-400 mcg-50 mcg (Centrum Silver Women) 1 tab PO DAILY omega-3 acid ethyl esters (Lovaza) 2 caps PO BID 3 months rosuvastatin 5 mg PO DAILY sumatriptan succinate 100 mg PO Q2-4H PRN MDD 2 tabs/24 hrs Tobacco use date assessed: 05/09/24 Fall risk assessment: No Falls in past year Last assessed Fall Risk: 05/09/24 Dental Screening Dental Screen Date: 05/09/24 Did you have a dental visit in the last 12 months?: Yes Did you have a dental problem in the last 6 months where you did not have access to dental care?: No Was dental information given to patient?: Patient has dentist HPI 6mnth f/u bp,cholesterol HPI Details 68-year-old lady with hypertension and hyperlipidemia, here today for follow-up. She is currently taking losartan-HCTZ 100-12.5 mg daily and metoprolol succinate ER 50 mg daily as well as rosuvastatin 5 mg once a day with Lovaza 2 capsules twice a day.. Patient states that she has been having hard time swallowing the Lovaza as tag capsules, gives an after taste. [facility] Medical History Positive colorectal cancer screening using Cologuard test Impaired fasting glucose ADD (attention deficit disorder) History of bilateral breast cancer Bilateral hearing loss Migraine headache Anxiety and depression Essential hypertension Mixed dyslipidemia Surgical History History of lumpectomy of left breast History of appendectomy History of lumpectomy of right breast Family History Father Mental health disorder Lung cancer Parkinson's disease Social History Household Members: None Housing: House Are you a primary family day care worker to a significant other at home: No Do you presently have visiting nurse or other home services: No Patient Tobacco Use Status: Former Tobacco user Tobacco use type: Cigarette e-Cigarette/Vaping Use: Former Use service: No Current occupational status: retired Cognitive needs: No Hearing needs: No Vision needs: Yes Questionnaire Thrive Questionnaire Date Thrive assessed: 08/18/23 AUDIT C Alcohol Use Questionnaire (AUDIT-C) 1. How often do you have a drink containing alcohol?: Monthly or less 2. How many drinks containing alcohol do you have on a typical day when you are drinking?: 1 or 2 3. How often do you have six or more drinks on one occasion?: Never Total Score: 1 Score Reviewed/Action Taken: Yes FRANCISCO-7 AMB Questionnaire FRANCISCO-7 Date FRANCISCO - 7 assessed: 08/18/23 Source: Developed by Drs. Talon Grant, Bekah Riojas, Ambrocio Perez and colleagues, with an educational keyana from [employer]. Review of Systems Const Denies fatigue, Denies headache(s) and Denies poor appetite Eyes Details: Impaired field of vision ENT Denies vertigo, Denies headache(s), Reports hearing loss (Wears hearing aids), Denies nasal congestion and Denies disequilibrium Card Denies chest pain, Denies rapid heart rate, Denies irregular heart rhythm and Denies dyspnea Resp Denies cough and Denies dyspnea GI Denies abdominal pain, Denies melena, Denies bloating, Denies hematochezia, Denies change in bowel habits, Denies heartburn and Denies nausea Reports no additional complaints Musc Reports no additional complaints Skin/Breast Denies breast swelling, Denies breast skin changes, Denies breast pain, Denies breast mass and Denies rash Neuro Denies vertigo, Denies headache(s), Denies Sensory deficit (Neuro) and Denies disequilibrium Psych Reports as per HPI Endo Reports no additional complaints and Denies fatigue Pablo/Lymph Denies easy bleeding and Denies easy bruising Aller/Immun Reports no additional complaints Physical exam (Primary Care) Vital Signs: Last Vital Signs Pulse 69 05/09/24 14:48 BP 122/74 05/09/24 14:48 Pulse Ox 94 05/09/24 14:48 Oxygen Delivery Method Room Air 05/09/24 14:48 BMI result Body Mass Index 29.1 Tobacco/Smoking Status: Tobacco use Status Tobacco use date assessed 05/09/24 05/09/24 14:56 Patient Tobacco Use Status Former Tobacco user 05/09/24 14:48 Tobacco use type Cigarette 05/09/24 14:48 e-Cigarette/Vaping Use Former Use 05/09/24 14:48 Thrive Assessment: Date of Thrive Assessment Date Thrive assessed 08/18/23 05/09/24 14:48 Const Other: Alert oriented x3, no acute distress noted ambulatory normal gait Orientation/consciousness: patient oriented x3 HENOR Head: Yes normocephalic Ears: hearing grossly impaired (Wears hearing aids) General nose exam: Normal external nose present and No nasal discharge present Face and sinus: Yes face symmetric Mouth: moist mucous membranes Eyes Alignment and Position: alignment normal Eyelids: Yes eyelid abnormality (Drooping upper eyelids) Pupils: Equal, round and reactive pupils present EOM: EOMs intact bilaterally Neck Other: Supple, no lymphadenopathy, thyroid gland nonpalpable Resp Auscultation: clear to auscultation bilaterally Cardio Other: S1-S2 present regular rate and rhythm GI Other: Normal bowel sounds, soft, nontender, no mass palpated Skin General skin exam: no rashes or lesions noted Neuro General: patient oriented x3, moves all extremities, Normal light touch and pain sensation and no focal motor deficits Cranial nerves: Yes Equal, round and reactive pupils present Sensory Exam: No Sensory deficit (Neuro) Extrem General: Yes full ROM, Yes no joint enlargement, Yes no pedal edema and Yes normal gait Results Reviewed Results Reviewed: cct#: [id number] Unit#: [id number] Attend Dr: Neelam Nobles MD Re05/06/24 Status: DEP REF Location: [facility] Disch: SPEC : [id number] CARROLL: 05/06/24 STATUS: COMP REQ : [id number] RECD: 05/06/24-[address]: Neelam Nobles MD COMP: 05/06/24-1418 ENTERED: 05/06/[address] [facility] [address]: ORDERED: Met Prof Fast, AST, ALT, Lipid Panel, Vitamin D 25-OH Test Result Flag Reference Sodium 138 135-145 mmol/L Potassium 4.5 3.3-5.1 mmol/L CL 101 96-108 mmol/L CO2 26 22-29 mmol/L Gap 16 12-20 BUN 28 H 9-16 mg/dL Creat 1.08 0.5-1.4 mg/dL EGFR 50 NOTE: For -[place] individuals, multiply the result by 1.210. Chronic Kidney Disease: Estimated GFR < 60 mL/min/1.73m2 Severe Kidney Disease: Estimated GFR < 15 mL/min/1.73m2 FBS 120 H 60-99 mg/dL A fasting glucose from 100-125 mg/dl is considered impaired (pre-diabetes). CA 9.9 8.4-10.2 mg/dL AST (GOT) 21 5-31 U/L ALT (GPT) 22 0-31 U/L Triglyceride 422 H <150 mg/dL Desirable Triglyceride: less than 150 mg/dL Borderline High Triglyceride 150-199 mg/dL High Triglyceride: 200-499 mg/dL Very High Triglyceride: greater than or equal to 5OO mg/dL Cholesterol 199 <200 mg/dL Desirable Cholesterol: less than 200 mg/dL Borderline High Cholesterol: 200-239 mg/dL High Cholesterol: greater than 239 mg/dL LDL Calculated Test not performed <100 mg/dL Unable to calculate the LDL. The formula of Friedwald, [place], and Alexis is only valid if the triglycerides are less than 400 mg/dl. HDL 33 L >40 mg/dL Desirable HDL: greater than 40 mg/dL Note: This HDL assay may give artificially low results in patients with liver disease. Vit D 25-OH Tot 61.6 >30 ng/mL Health Based Reference Values* < 20 ng/mL Deficient 20-30 ng/mL Insufficient > 30 ng/mL Sufficient Assessment and Plan Assessment & Plan (1) Mixed dyslipidemia: Code(s): E78.2 - Mixed hyperlipidemia Plan: Continue with Lovaza and rosuvastatin same dose, reinforced importance of following a low-cholesterol diet and getting regular exercise. Will repeat another fasting lipid panel and LDL direct in 3 months' time (2) Impaired fasting glucose: Code(s): R73.01 - Impaired fasting glucose Plan: Your previous fasting blood sugars were elevated above 100 mg/dL. Impaired glucose metabolism increases the risk for developing diabetes mellitus type 2, as well as heart attack and stroke later on. Lifestyle changes that promotes weight loss, healthy eating habits, and regular exercise are important, and can prevent the progression to diabetes Orders: Orders Lipid Panel 07/21/24 R73.01 - Impaired fasting glucose, E78.2 - Mixed hyperlipidemia Hemoglobin A1c 07/21/24 R73.01 - Impaired fasting glucose, E78.2 - Mixed hyperlipidemia Basic Metabolic Panel Fasting 07/21/24 R73.01 - Impaired fasting glucose, E78.2 - Mixed hyperlipidemia Aspartate Amino Transferase 07/21/24 R73.01 - Impaired fasting glucose, E78.2 - Mixed hyperlipidemia Alanine Aminotransferase 07/21/24 R73.01 - Impaired fasting glucose, E78.2 - Mixed hyperlipidemia LDL Cholesterol Direct 07/21/24 R73.01 - Impaired fasting glucose, E78.2 - Mixed hyperlipidemia Coding Level of Care Code Est Pt Level 4 (55057) Complex EM visit Add On G2211 Diagnoses Mixed dyslipidemia E78.2 Impaired fasting glucose R73.01
== END 2024-05-09 16:46 | disposition home or self-care (01) ==
PROVIDERS: PCP Internal Medicine; Visit Provider Internal Medicine
DX: E78.2 Mixed hyperlipidemia (principal); R73.01 Impaired fasting glucose
CPT/HCPCS: 99214; G2211

== ENCOUNTER 2024-06-20 09:43 | Outpatient (AMB) | payer MEDICARE, SELFPAY ==
[2024-06-20 09:53] VITALS: BP 108/80; PULSE 59; O2SAT 95; BMI 28.9
--- NOTE | 2024-06-20 09:53 | MHC.PC.OV ---
Vital Signs 06/20/24 09:53 Height 5 ft Weight 148 lb BMI 28.9 BP 108/80 Blood Pressure Location Rt brachial Position Sitting Pulse 59 Pulse Source Pulse Oximeter Pulse Oximetry (%) 95 Oxygen Delivery Method Room Air Intake Visit Reasons: Eye surgery 07/15/[address] Hanna Intake Note: Pt is here today for her pre-op bilateral eye 07/15/24 Blepharoplasty [facility] Allergies codeine [CODEINE] Adverse Reaction (Intermediate, Verified 06/21/24 09:15) N/V oxycodone [From PERCOCET] Adverse Reaction (Intermediate, Verified 06/21/24 09:15) N/V penicillin Allergy (Unknown, Uncoded 06/21/24 09:15) rash, hive Medication List - Last Reconciled 06/21/24 by Neelam Nobles MD ascorbic acid (vitamin C) 1 g orally Patient takes PRN when she feels a cold starting; cholecalciferol (vitamin D3) 50 mcg PO DAILY losartan-hydrochlorothiazide 100-12.5 mg 1 tab PO DAILY metoprolol succinate ER 50 mg PO DAILY luyddjjp-qsp-ouko-FA-vit K-lut 8 mg iron-400 mcg-50 mcg (Centrum Silver Women) 1 tab PO DAILY rosuvastatin 5 mg PO DAILY sumatriptan succinate 100 mg PO Q2-4H PRN MDD 2 tabs/24 hrs Tobacco use date assessed: 06/20/24 Fall risk assessment: No Falls in past year Last assessed Fall Risk: 06/20/24 Dental Screening Dental Screen Date: 06/20/24 Did you have a dental visit in the last 12 months?: Yes Did you have a dental problem in the last 6 months where you did not have access to dental care?: No Was dental information given to patient?: Patient has dentist HPI Eye surgery 07/15/[address] Hanna HPI Details 68-year-old lady here today for preoperative medical exam prior to scheduled blepharoplasty on 07/15/2024 to be done at [facility] in [place]. She has hypertension and history of migraine headaches, currently stable and controlled on present treatment. Has mixed dyslipidemia, with latest non-fasting labs showed elevated triglycerides and blood g;lucose . Has been feeling well with no complaints at present time. [facility] Medical History Positive colorectal cancer screening using Cologuard test Impaired fasting glucose ADD (attention deficit disorder) History of bilateral breast cancer Bilateral hearing loss Migraine headache Anxiety and depression Essential hypertension Mixed dyslipidemia Surgical History History of lumpectomy of left breast History of appendectomy History of lumpectomy of right breast Family History Father Mental health disorder Lung cancer Parkinson's disease Social History Household Members: None Housing: House Are you a primary college and career counselor to a significant other at home: No Do you presently have visiting nurse or other home services: No Patient Tobacco Use Status: Former Tobacco user Tobacco use type: Cigarette e-Cigarette/Vaping Use: Former Use service: No Current occupational status: retired Cognitive needs: No Hearing needs: No Vision needs: Yes Questionnaire PHQ-9 Over the last 2 weeks, how often have you been bothered by any of the following problems? 1. Little interest or pleasure in doing things: not at all 2. Feeling down, depressed, or hopeless: not at all 3. Trouble falling or staying asleep, or sleeping too much: several days 4. Feeling tired or having little energy: several days 5. Poor appetite or overeating: several days 6. Feeling bad about yourself - or that you are a failure or have let yourself or your family down: not at all 7. Trouble concentrating on things, such as reading the newspaper or watching television: not at all 8. Moving or speaking so slowly that other people could have noticed. Or the opposite - being so fidgety or restless that you have been moving around a lot more than usual: not at all 9. Thoughts that you would be better off or of hurting yourself in some way: not at all Total score: 3 Depression Screening Interpretation: Negative Depression Screening Done: Yes 49954 - PHQ-9 Billing: Yes Source: Developed by Drs. Talon Grant, Bekah Riojas, Ambrocio Perez and colleagues, with an educational keyana from [employer]. Thrive Questionnaire Date Thrive assessed: 06/20/24 I am a: Patient What is your living situation today?: I have a steady place to live Within the past 12 months, did the food you bought not last and you didn't have the money to get more?: Never true Within the past 12 months, did you worry whether your food would run out before you got money to buy more?: Never true Do you have trouble paying for medicines?: No Do you have trouble getting transportation to medical appointments?: No Do you have trouble paying your heating and electricity bill?: No Do you have trouble taking care of your child, family member or friend?: No Do you have trouble with day-to-day activities such as bathing, preparing meals, shopping, managing finances, etc.?: No Are you currently unemployed and looking for a job?: No Are you interested in more education?: No Please select the resources that you would like help with: Housing/Skilled Nursing Currently or been in a relationship where the following occur: No concerns reported THRIVE Score: 0 AUDIT C Alcohol Use Questionnaire (AUDIT-C) 1. How often do you have a drink containing alcohol?: 2-4 times a month 2. How many drinks containing alcohol do you have on a typical day when you are drinking?: 1 or 2 3. How often do you have six or more drinks on one occasion?: Never Total Score: 2 FRANCISCO-7 AMB Questionnaire FRANCISCO-7 Date FRANCISCO - 7 assessed: 06/20/24 Feeling nervous, anxious, or on edge: 1 = Several days Not being able to stop or control worryin = Not at all Worrying too much about different things: 1 = Several days Trouble relaxin = Several days Being so restless that it is hard to sit still: 0 = Not at all Becoming easily annoyed or irritable: 1 = Several days Feeling afraid as if something awful might happen: 0 = Not at all Total FRANCISCO-7 score (0-4 normal; 5-9 mild; 10-14 moderate; 15-21 severe): 4 Source: Developed by Drs. Talon Grant, Bekah Riojas, Ambrocio Perez and colleagues, with an educational keyana from [employer]. FRANCISCO-7 Assessment Billing FRANCISCO-7 Assessment Tool: FRANCISCO-7 Assessment 86081 Review of Systems Const Denies fatigue, Denies headache(s) and Denies poor appetite Eyes Details: Impaired field of vision ENT Denies vertigo, Denies headache(s), Reports hearing loss (Wears hearing aids), Denies nasal congestion and Denies disequilibrium Card Denies chest pain, Denies rapid heart rate, Denies irregular heart rhythm and Denies dyspnea Resp Denies cough and Denies dyspnea GI Denies abdominal pain, Denies melena, Denies bloating, Denies hematochezia, Denies change in bowel habits, Denies heartburn and Denies nausea Reports no additional complaints Musc Reports no additional complaints Neuro Denies vertigo, Denies headache(s), Denies Sensory deficit (Neuro) and Denies disequilibrium Psych Reports as per HPI Endo Reports no additional complaints and Denies fatigue Pablo/Lymph Denies easy bleeding and Denies easy bruising Physical exam (Primary Care) Vital Signs: Last Vital Signs Pulse 59 06/20/24 09:53 BP 108/80 06/20/24 09:53 Pulse Ox 95 06/20/24 09:53 Oxygen Delivery Method Room Air 06/20/24 09:53 BMI result Body Mass Index 28.9 Tobacco/Smoking Status: Tobacco use Status Tobacco use date assessed 06/20/24 06/20/24 10:19 Patient Tobacco Use Status Former Tobacco user 06/20/24 09:53 Tobacco use type Cigarette 06/20/24 09:53 e-Cigarette/Vaping Use Former Use 06/20/24 09:53 PHQ-9: PHQ-9 Score PHQ-9: Total score 4 06/23/24 18:40 Depression Screening Interpretation: Negative Thrive Assessment: Date of Thrive Assessment Date Thrive assessed 06/20/24 06/20/24 10:19 Currently or been in a relationship where the following occur: No concerns reported Const Other: Alert oriented x3, no acute distress noted ambulatory normal gait Orientation/consciousness: patient oriented x3 HENMT Head: Yes normocephalic Ears: hearing grossly impaired (Wears hearing aids) General nose exam: Normal external nose present and No nasal discharge present Face and sinus: Yes face symmetric Mouth: moist mucous membranes Eyes Alignment and Position: alignment normal Eyelids: Yes eyelid abnormality (Drooping upper eyelids) Pupils: Equal, round and reactive pupils present EOM: EOMs intact bilaterally Neck Other: Supple, no lymphadenopathy, thyroid gland nonpalpable Resp Auscultation: clear to auscultation bilaterally Cardio Other: S1-S2 present regular rate and rhythm GI Other: Normal bowel sounds, soft, nontender, no mass palpated Skin General skin exam: no rashes or lesions noted Neuro General: patient oriented x3, moves all extremities, Normal light touch and pain sensation and no focal motor deficits Cranial nerves: Yes Equal, round and reactive pupils present Sensory Exam: No Sensory deficit (Neuro) Extrem General: Yes full ROM, Yes no joint enlargement, Yes no pedal edema and Yes normal gait Results Reviewed Results Reviewed: dana: Tri Shafer Age/Sex: 68/F : 1955 Unit#: [id number] Attend Dr: Neelam Nobles MD Re05/06/24 Status: DEP REF Location: [facility] Disch: SPEC : [id number] CARROLL: 05/06/24 STATUS: COMP REQ : [id number] RECD: 05/06/24-[address]: Neelam Nobles MD COMP: 05/06/24 ENTERED: 05/06/[address]: ORDERED: Met Prof Fast, AST, ALT, Lipid Panel, Vitamin D 25-OH Test Result Flag Reference Sodium 138 135-145 mmol/L Potassium 4.5 3.3-5.1 mmol/L CL 101 96-108 mmol/L CO2 26 22-29 mmol/L Gap 16 12-20 BUN 28 H 9-16 mg/dL Creat 1.08 0.5-1.4 mg/dL EGFR 50 NOTE: For -[place] individuals, multiply the result by 1.210. Chronic Kidney Disease: Estimated GFR < 60 mL/min/1.73m2 Severe Kidney Disease: Estimated GFR < 15 mL/min/1.73m2 FBS 120 H 60-99 mg/dL A fasting glucose from 100-125 mg/dl is considered impaired (pre-diabetes). CA 9.9 8.4-10.2 mg/dL AST (GOT) 21 5-31 U/L ALT (GPT) 22 0-31 U/L Triglyceride 422 H <150 mg/dL Desirable Triglyceride: less than 150 mg/dL Borderline High Triglyceride 150-199 mg/dL High Triglyceride: 200-499 mg/dL Very High Triglyceride: greater than or equal to 5OO mg/dL Cholesterol 199 <200 mg/dL Desirable Cholesterol: less than 200 mg/dL Borderline High Cholesterol: 200-239 mg/dL High Cholesterol: greater than 239 mg/dL LDL Calculated Test not performed <100 mg/dL Unable to calculate the LDL. The formula of Friedwald, San, and Alexis is only valid if the triglycerides are less than 400 mg/dl. HDL 33 L >40 mg/dL Desirable HDL: greater than 40 mg/dL Note: This HDL assay may give artificially low results in patients with liver disease. Vit D 25-OH Tot 61.6 >30 ng/mL Health Based Reference Values* < 20 ng/mL Deficient 20-30 ng/mL Insufficient > 30 ng/mL Sufficient *Damien LOZANO. N Engl J Med. 2007;357:266-280 Care must be taken in interpreting Vitamin D results from different laboratories and methodologies. Published data demonstrated that results from patients undergoing hemodialysis may show a negative bias when tested with various automated 25-OH vitamin D assays when compared to LC-MS/MS. When testing samples from patients whose predominant form of Vitamin D is Vitamin D2, such as patients receiving Vitamin D2 supplementation, results that are subtherapeutic should be confirmed with another method such as LC-MS/MS. Assessment and Plan Assessment & Plan (1) Preoperative examination: Code(s): Z01.818 - Encounter for other preprocedural examination Plan: 68-year-old lady here today for preoperative exam for blepharoplasty OU scheduled for 07/15/2024, to be done at the [facility] in [place]. She has been feeling well, blood pressure stable controlled on present treatment. Denies chest pain, shortness of, coughing, abdominal pain, abnormal bleeding tendencies. Preoperative exam was unremarkable. EKG done showed sinus bradycardia with no acute ST-T changes. Patient with a low cardiac risk index for proposed surgery (2) Migraine headache: Code(s): G43.909 - Migraine, unspecified, not intractable, without status migrainosus Qualifiers: Migraine type: chronic migraine (15 or more days per month) without aura Status migrainosus presence: without status migrainosus Plan: Takes sumatriptan tablet as needed for acute onset of migraine headache, which has been occurring infrequently (3) Essential hypertension: Code(s): I10 - Essential (primary) hypertension Plan: Blood pressure at goal of less than 130/80. Continue with current medication. Reinforced importance of following a low sodium diet, getting regular exercise, and lowering stress levels. (4) Mixed dyslipidemia: Code(s): E78.2 - Mixed hyperlipidemia Plan: Continue with rosuvastatin 5 mg daily, and advised to adhere to healthy eating habits and getting regular exercise. Coding Level of Care Code Est Pt Level 4 (80762) Diagnoses Preoperative examination Z01.818 Migraine headache G43.909 Migraine type: chronic migraine (15 or more days per month) without aura Status migrainosus presence: without status migrainosus Essential hypertension I10 Mixed dyslipidemia E78.2 Additional Codes FRANCISCO-7 Assessment Billing - FRANCISCO-7 Assessment Tool: FRANCISCO-7 Assessment 67962 ([id number])
== END 2024-06-20 11:51 | disposition home or self-care (01) ==
PROVIDERS: PCP Internal Medicine; Visit Provider Internal Medicine
DX: I10 Essential (primary) hypertension (principal); Z01.818 Encounter for other preprocedural examination; G43.909 Migraine, unspecified, not intractable, without status migrainosus; E78.2 Mixed hyperlipidemia
CPT/HCPCS: 99214

== ENCOUNTER 2024-08-07 10:05 | Outpatient (REF) | payer MEDICARE, SELFPAY ==
[2024-08-07 14:00] LABS: Estimated Average Glucose 126 mg/dL; Total Hemoglobin (HGBA1C) 3183.4875 umol/L
[2024-08-07 15:01] LABS: Alanine Aminotransferase 18 U/L (0-31); Anion Gap 14 (12-20); Aspartate Amino Transferase 20 U/L (5-31); Blood Urea Nitrogen 26 mg/dL (9-16); Calcium 9.8 mg/dL (8.4-10.2); Carbon Dioxide 26 mmol/L (22-29); Chloride 102 mmol/L (96-108); Cholesterol 195 mg/dL (<200); Estimated Glomerular Filt Rate 47; Glucose Fasting 102 mg/dL (60-99); HDL Cholesterol 49 mg/dL (>40); LDL Cholesterol Calculated 82 mg/dL (<100); Potassium 3.8 mmol/L (3.3-5.1); Sodium 138 mmol/L (135-145); Triglycerides 320 mg/dL (<150)
[2024-08-08 15:28] LABS: LDL Cholesterol Direct 101 mg/dL (<100)
== END 2024-08-07 10:06 | disposition home or self-care (01) ==
LOC: HO.HMGCLDS 10:05
PROVIDERS: PCP Internal Medicine; Visit Provider Internal Medicine
DX: R73.01 Impaired fasting glucose (principal); E78.2 Mixed hyperlipidemia
CPT/HCPCS: 36415; 80048; 80061; 83036; 83721; 84450; 84460

== ENCOUNTER 2024-08-09 08:32 | Outpatient (AMB) | payer MEDICARE, SELFPAY ==
--- NOTE | 2024-08-09 08:28 | A.OFFPC_ITS ---
Intake Visit Reasons: lipids f/u Andriod [phone] Intake Note: Pt is having a TH visit to f/u lipids Allergies codeine [CODEINE] Adverse Reaction (Intermediate, Verified 08/09/24 09:08) N/V oxycodone [From PERCOCET] Adverse Reaction (Intermediate, Verified 08/09/24 09:08) N/V penicillin Allergy (Unknown, Uncoded 08/09/24 09:08) rash, hive Medication List - Last Reconciled 08/09/24 by Neelam Nobles MD ascorbic acid (vitamin C) 1 g orally Patient takes PRN when she feels a cold starting; cholecalciferol (vitamin D3) 50 mcg PO DAILY losartan-hydrochlorothiazide 100-12.5 mg 1 tab PO DAILY magnesium 250 mg PO DAILY metoprolol succinate ER 50 mg PO DAILY puqlowth-xmh-crsg-FA-vit K-lut 8 mg iron-400 mcg-50 mcg (Centrum Silver Women) 1 tab PO DAILY rosuvastatin 5 mg PO DAILY sumatriptan succinate 100 mg PO Q2-4H PRN MDD 2 tabs/24 hrs Tobacco use date assessed: 08/09/24 Fall risk assessment: No Falls in past year Last assessed Fall Risk: 08/09/24 Dental Screening Dental Screen Date: 08/09/24 Did you have a dental visit in the last 12 months?: Yes Did you have a dental problem in the last 6 months where you did not have access to dental care?: No Was dental information given to patient?: Patient has dentist HPI lipids f/u Andriod [phone] HPI Details Telehealth visit made with 68-year-old lady with prediabetes, and mixed dyslipidemia. She has been compliant with recommended diet, has started exercising, with improvement in her triglycerides and glucose levels noted on recent labs. She is overdue for her screening mammogram, has history of bilateral breast cancer, last mammogram was in 2021. Has never had a bone density scan. Will schedule. She also tested positive on her Cologuard test 02/10/2022, has been referred to [facility] in 2021 and has been seen by Mitra Ramirez. Patient states an appointment was scheduled for her to get a diagnostic colonoscopy but this was canceled by office. Patient is however still has not heard from them about another appointment for her colonoscopy, with follow-up. [facility] Medical History Positive colorectal cancer screening using Cologuard test Impaired fasting glucose ADD (attention deficit disorder) History of bilateral breast cancer Bilateral hearing loss Migraine headache Anxiety and depression Essential hypertension Mixed dyslipidemia Surgical History History of lumpectomy of left breast History of appendectomy History of lumpectomy of right breast Family History Father Mental health disorder Lung cancer Parkinson's disease Social History Household Members: None Housing: House Are you a primary director of critical care to a significant other at home: No Do you presently have visiting nurse or other home services: No Patient Tobacco Use Status: Former Tobacco user Tobacco use type: Cigarette e-Cigarette/Vaping Use: Former Use service: No Current occupational status: retired Cognitive needs: No Hearing needs: No Vision needs: Yes Questionnaire Thrive Questionnaire Date Thrive assessed: 06/20/24 FRANCISCO-7 AMB Questionnaire FRANCISCO-7 Date FRANCISCO - 7 assessed: 06/20/24 Source: Developed by Drs. Talon Grant, Bekah Riojas, Ambrocio Perez and colleagues, with an educational keyana from [employer]. Review of Systems Const Denies fatigue, Denies headache(s) and Denies poor appetite Eyes Details: Impaired field of vision ENT Denies vertigo, Denies headache(s), Reports hearing loss (Wears hearing aids), Denies nasal congestion and Denies disequilibrium Card Denies chest pain, Denies rapid heart rate, Denies irregular heart rhythm and Denies dyspnea Resp Denies cough and Denies dyspnea GI Denies abdominal pain, Denies melena, Denies bloating, Denies hematochezia, Denies change in bowel habits, Denies heartburn and Denies nausea Reports no additional complaints Musc Reports no additional complaints Skin/Breast Denies breast swelling, Denies breast skin changes, Denies breast pain, Denies breast mass and Denies rash Neuro Denies vertigo, Denies headache(s) and Denies disequilibrium Psych Reports as per HPI Endo Reports no additional complaints and Denies fatigue Pablo/Lymph Denies easy bleeding and Denies easy bruising Aller/Immun Reports no additional complaints Physical exam (Primary Care) Tobacco/Smoking Status: Tobacco use Status Tobacco use date assessed 08/09/24 08/09/24 08:30 Patient Tobacco Use Status Former Tobacco user 08/09/24 08:30 Tobacco use type Cigarette 08/09/24 08:30 e-Cigarette/Vaping Use Former Use 08/09/24 08:30 Thrive Assessment: Date of Thrive Assessment Date Thrive assessed 06/20/24 08/09/24 08:30 Telehealth Telehealth Telehealth Platform: [employer] Location of provider rendering services: practice address Location of patient: address on file Patient Identification confirmed using: Name, : Yes Telehealth method: video Patient verbally consented to treatment: Yes Patient verbally consented to billing insurance company: Yes Patient informed of any privacy concerns related to visit: Yes Minutes spent on Phone/Video with Pt.: 15 Results Reviewed Results Reviewed: Name: Tri Shafer Age/Sex: 68/F : 1955 Unit#: [id number] Attend Dr: Neelam Nobles MD Re08/07/24 Status: DEP REF Location: [facility] Disch: SPEC : [id number] CARROLL: 08/07/24-1010 STATUS: COMP REQ : [id number] RECD: 08/07/24-[address]: Neelam Nobles MD COMP: 08/07/24-1501 ENTERED: 08/07/24-[address]: ORDERED: Met Prof Fast, AST, ALT, Lipid Panel Test Result Flag Reference Sodium 138 135-145 mmol/L Potassium 3.8 3.3-5.1 mmol/L CL 102 96-108 mmol/L CO2 26 22-29 mmol/L Gap 14 12-20 BUN 26 H 9-16 mg/dL Creat 1.14 0.5-1.4 mg/dL EGFR 47 NOTE: For -Honduran individuals, multiply the result by 1.210. Chronic Kidney Disease: Estimated GFR < 60 mL/min/1.73m2 Severe Kidney Disease: Estimated GFR < 15 mL/min/1.73m2 FBS 102 H 60-99 mg/dL A fasting glucose from 100-125 mg/dl is considered impaired (pre-diabetes). CA 9.8 8.4-10.2 mg/dL AST (GOT) 20 5-31 U/L ALT (GPT) 18 0-31 U/L Triglyceride 320 H <150 mg/dL Desirable Triglyceride: less than 150 mg/dL Borderline High Triglyceride 150-199 mg/dL High Triglyceride: 200-499 mg/dL Very High Triglyceride: greater than or equal to 5OO mg/dL Cholesterol 195 <200 mg/dL Desirable Cholesterol: less than 200 mg/dL Borderline High Cholesterol: 200-239 mg/dL High Cholesterol: greater than 239 mg/dL LDL Calculated 82 <100 mg/dL Desirable LDL: less than 100 mg/dL Near Optimal/Above Optimal LDL: 110-129 mg/dL Borderline High LDL: 130-159 mg/dL High LDL: 160-189 mg/dL Very High LDL: greater than or equal to 190 mg/dL HDL 49 >40 mg/dL Desirable HDL: greater than 40 mg/dL Note: This HDL assay may give artificially low results in patients with liver disease. Laboratory Tests 08/07/24 10:10 Estimat Average Glucose 126 Hemoglobin A1c % 6.0 Assessment and Plan Assessment & Plan (1) Mixed dyslipidemia: Code(s): E78.2 - Mixed hyperlipidemia Plan: Reviewed recent fasting lipid profile with patient with triglycerides lower, but still not at goal of less than 150, LDL cholesterol within normal limits. . Continue rosuvastatin 5 mg daily, added Lovaza capsules twice a day , in addition to adherence to low-cholesterol diet and regular exercise, at least 30 minutes 3 to 4 times a week. Advised patient to make healthy food choices, eat more fruits, vegetables, whole grains, wild caught fish and low-fat dairy. Limit amount of meat and fried or fatty food products, as well as processed foods and fast foods. Follow-up scheduled with repeat fasting lipid panel in 5 months. (2) Positive colorectal cancer screening using Cologuard test: Code(s): R19.5 - Other fecal abnormalities Plan: She has been referred in 2021 to [facility], has been seen and scheduled for a colonoscopy but patient states they canceled and has not called her back to reschedule. Will follow-up with GI regarding need for emergent colonoscopy (3) History of bilateral breast cancer: Comment: Status post lumpectomy, chemotherapy and radiation therapy, previously being followed by Dr. Browning Code(s): Z85.3 - Personal history of malignant neoplasm of breast Plan: Overdue for repeat screening mammogram, last done in 2021, ordered mammogram together with a bone density scan to be done at [facility] (4) Impaired fasting glucose: Code(s): R73.01 - Impaired fasting glucose Plan: Latest hemoglobin A1c is at 6%, continue adherence to healthy eating habits, continue doing regular exercise at least 30 minutes of cardio daily. Will recheck another hemoglobin A1c in 01/2025 Orders: Orders Lipid Panel 01/18/25 E78.2 - Mixed hyperlipidemia, F32.A - Depression, unspecified, F41.9 - Anxiety disorder, unspecified, I10 - Essential (primary) hypertension, R73.01 - Impaired fasting glucose Vitamin D 25-OH Total 01/18/25 E78.2 - Mixed hyperlipidemia, F32.A - Depression, unspecified, F41.9 - Anxiety disorder, unspecified, I10 - Essential (primary) hypertension, R73.01 - Impaired fasting glucose Alanine Aminotransferase 01/18/25 E78.2 - Mixed hyperlipidemia, F32.A - Depression, unspecified, F41.9 - Anxiety disorder, unspecified, I10 - Essential (primary) hypertension, R73.01 - Impaired fasting glucose Aspartate Amino Transferase 01/18/25 E78.2 - Mixed hyperlipidemia, F32.A - Depression, unspecified, F41.9 - Anxiety disorder, unspecified, I10 - Essential (primary) hypertension, R73.01 - Impaired fasting glucose Hemoglobin A1c 01/18/25 E78.2 - Mixed hyperlipidemia, F32.A - Depression, unspecified, F41.9 - Anxiety disorder, unspecified, I10 - Essential (primary) hypertension, R73.01 - Impaired fasting glucose Basic Metabolic Panel Fasting 01/18/25 E78.2 - Mixed hyperlipidemia, F32.A - Depression, unspecified, F41.9 - Anxiety disorder, unspecified, I10 - Essential (primary) hypertension, R73.01 - Impaired fasting glucose XR DEXA axial skeleton Today Z12.31 - Encounter for screening mammogram for malignant neoplasm of breast, Z78.0 - Asymptomatic menopausal state, Z85.3 - Personal history of malignant neoplasm of breast MM tomosynthesis screening BI Today Z12.31 - Encounter for screening mammogram for malignant neoplasm of breast, Z78.0 - Asymptomatic menopausal state, Z85.3 - Personal history of malignant neoplasm of breast Medications: New omega-3 acid ethyl esters (Lovaza) 2 caps PO BID 3 months 360 caps 2RF E78.2 - Mixed hyperlipidemia Refilled losartan-hydrochlorothiazide 100-12.5 mg 1 tab PO DAILY 90 tabs 3RF I10 - Essential (primary) hypertension metoprolol succinate ER 50 mg PO DAILY 90 tabs 4RF G43.909 - Migraine, unspecified, not intractable, without status migrainosus, I10 - Essential (primary) hypertension sumatriptan succinate Take 1 tablet at the 1st sign of migraine headache, and may repeat another dose after 2 hours if headache not completely resolved. Maximum dose of 2 tablets in a 24 hour period 100 mg PO Q2-4H PRN 12 tabs 4RF migraine headache MDD 2 tabs/24 hrs rosuvastatin 5 mg PO DAILY 90 tabs 4RF Coding Level of Care Code Tele Est Pt Level 4 (88913) Complex EM visit Add On G2211 Diagnoses Mixed dyslipidemia E78.2 Positive colorectal cancer screening using Cologuard test R19.5 History of bilateral breast cancer Z85.3 Impaired fasting glucose R73.01
== END 2024-08-09 12:12 | disposition home or self-care (01) ==
LOC: HO.HMCC 08:32
PROVIDERS: PCP Internal Medicine; Visit Provider Internal Medicine
DX: E78.2 Mixed hyperlipidemia (principal); R19.5 Other fecal abnormalities; Z85.3 Personal history of malignant neoplasm of breast; R73.01 Impaired fasting glucose

== ENCOUNTER → 2024-08-09 08:32 | Outpatient (BNVA) | payer MEDICARE, SELFPAY | PROVIDERS: PCP Internal Medicine; Visit Provider Internal Medicine ==

== ENCOUNTER 2024-10-10 13:55 | Outpatient (REF) | payer MEDICARE, SELFPAY ==
--- NOTE | ~2024-10-10 | MM_ITS ---
EXAMINATION: MM SCREENING DIGITAL BREAST TOMOSYNTHESIS, BILATERAL CLINICAL INFORMATION: Screening. Asymptomatic. COMPARISON: Mammography: Comparison is made with available priors TECHNIQUE: Digital breast mammography with tomosynthesis is performed in both the craniocaudal and mediolateral oblique views along with computer-aided detection (CAD). FINDINGS: The breasts are heterogeneously dense, which may obscure small masses (ACR BI-RADS breast composition Category c). Bilateral posttreatment changes are stable. There are no significant masses, abnormal calcifications, or other abnormalities. MM/MM tomosynthesis screening BI IMPRESSION: No mammographic evidence of malignancy. ASSESSMENT: BI-RADS BI-RADS 2 - Benign Findings RECOMMENDATION: Routine annual mammography screening. 1 year F/U This examination should not preclude the clinical evaluation of a suspicious palpable abnormality. This patient's information was entered into a reminder system with a target due date for their next mammogram. Electronically signed by: Laurie Arizmendi DO 10/21/2024 09:30 AM [facility]
--- NOTE | ~2024-10-10 | MM_ITS ---
EXAMINATION: BONE DENSITOMETRY CLINICAL INDICATION: Asymptomatic menopausal state. COMPARISON: Previous BD dated 07/09/2013 and baseline BD dated 12/26/2005. TECHNIQUE: Using a iCracked DXA System (software version: 13.1) manufactured by [employer], dual-energy x-ray absorptiometry was performed of the lumbar spine and left hip. The images are of good technical quality. Summary results are attached. FINDINGS: LEFT FEMUR, NECK: Current: BMD 0.842 g/cm2, Z-score 0.2, T-score -1.4, osteopenia. Prior: BMD 0.884 g/cm2. Baseline: BMD 0.961 g/cm2. LEFT FEMUR, TOTAL: Current: BMD 0.981 g/cm2, Z-score 1.2, T-score -0.2, normal, 5.0% decrease from previous, 10.2% decrease from baseline (<5% change is not significant). Prior: BMD 1.033 g/cm2. Baseline: BMD 1.093 g/cm2. AP SPINE L1-L4: Current: BMD 1.207 g/cm2, Z-score 1.9, T-score 0.2, normal, 4.5% increase from previous, 1.5% increase from baseline (<5% change is not significant). Prior: BMD 1.155 g/cm2. Baseline: BMD 1.189 g/cm2. IDENTIFIED RISK FACTORS: Menopause. HISTORY OF FRACTURE: None listed. MEDICATIONS: Calcium, multivitamin, vitamin D. MM/XR DEXA axial skeleton IMPRESSION: 1. DIAGNOSIS: Osteopenia based on the lowest T-score value of -1.4 in the femoral neck applying World Health Organization criteria. 2. 10-YEAR FRACTURE RISK PREDICTION, FRAX: Major osteoporotic fracture (clinical spine, forearm, hip or shoulder) 9.5%. Hip fracture 1.3%. 3. Treatment Recommendations: NOF guidelines recommend consideration for treatment in postmenopausal women and men age 50 and older presenting with the following: -A hip or vertebral (clinical or morphometric) fracture. -T-score less than or equal to -2.5 at the femoral neck or spine after appropriate evaluation to exclude secondary causes. -Low bone mass at the hip or spine and a 10-year fracture probability by FRAX of greater than or equal to 3% for hip fracture or greater than or equal to 20% for major osteoporotic fracture based on the [place] adapted WHO algorithm. 4. Other Recommendations: All treatment decisions require clinical judgment and consideration of individual patient factors, including patient preferences, comorbidities, previous drug use, risk factors not captured in the FRAX model (e.g. frailty, falls, vitamin D deficiency, increased bone turnover, interval significant decline in bone density) and possible under or overestimation of fracture risk by FRAX. Additional medical evaluation for secondary cause of low bone mineral density may be appropriate. FUTURE SCAN RECOMMENDATION: People with diagnosed cases of osteoporosis or at high risk for fracture should have regular bone mineral density tests. For patients eligible for Medicare, routine testing is allowed once every 2 years. The testing frequency can be increased to one year for patients who have rapidly progressing disease, those who are receiving or discontinuing medical therapy to restore bone mass, or have additional risk factors. Electronically signed by: Agusto Klein MD 10/11/2024 08:19 AM [facility]
== END 2024-10-10 13:56 | disposition home or self-care (01) ==
LOC: HO.MAMMO 13:55
PROVIDERS: PCP Internal Medicine; Visit Provider Internal Medicine
DX: Z12.31 Encounter for screening mammogram for malignant neoplasm of breast (principal); Z13.820 Encounter for screening for osteoporosis; Z78.0 Asymptomatic menopausal state; Z85.3 Personal history of malignant neoplasm of breast
CPT/HCPCS: 77063; 77067; 77080

== ENCOUNTER → 2024-10-10 14:15 | Outpatient (BNV) | payer MEDICARE, SELFPAY | PROVIDERS: PCP Internal Medicine; Visit Provider Internal Medicine | DX: Z12.31 Encounter for screening mammogram for malignant neoplasm of breast (principal) | CPT/HCPCS: 77063; 77067 ==

== ENCOUNTER 2025-03-21 11:57 | Outpatient (REF) | payer MEDICARE, SELFPAY ==
[2025-03-21 13:50] LABS: Estimated Average Glucose 126 mg/dL; Hemoglobin A1C 140.9738 umol/L
[2025-03-21 14:13] LABS: Alanine Aminotransferase 17 U/L (0-31); Anion Gap 15 (12-20); Aspartate Amino Transferase 25 U/L (5-31); Blood Urea Nitrogen 23 mg/dL (9-16); Calcium 9.7 mg/dL (8.4-10.2); Carbon Dioxide 28 mmol/L (22-29); Chloride 100 mmol/L (96-108); Cholesterol 186 mg/dL (<200); Estimated Glomerular Filt Rate 54; Glucose Fasting 116 mg/dL (60-99); HDL Cholesterol 51 mg/dL (>40); LDL Cholesterol Calculated 74 mg/dL (<100); Potassium 3.6 mmol/L (3.3-5.1); Sodium 139 mmol/L (135-145); Triglycerides 306 mg/dL (<150)
== END 2025-03-21 11:58 | disposition home or self-care (01) ==
LOC: HO.HMGCLDS 11:57
PROVIDERS: PCP Internal Medicine; Visit Provider Internal Medicine
DX: R73.01 Impaired fasting glucose (principal); F41.9 Anxiety disorder, unspecified; F32.A Depression, unspecified; I10 Essential (primary) hypertension; E78.2 Mixed hyperlipidemia
CPT/HCPCS: 36415; 80048; 80061; 82306; 83036; 84450; 84460

== ENCOUNTER 2025-03-25 11:23 | Outpatient (AMB) | payer MEDICARE, SELFPAY ==
[2025-03-25 12:35] VITALS: BP 120/80; PULSE 61; RESP 16; TEMP 36.9; O2SAT 94; BMI 30.3
--- NOTE | 2025-03-25 12:35 | A.OFFPC_ITS ---
Vital Signs 03/25/25 12:35 Height 5 ft Weight 155 lb BMI 30.3 BP 120/80 Blood Pressure Location Rt brachial Position Sitting Respiration 16 Pulse 61 Pulse Source Pulse Oximeter Temp 98.4 F Temp Source Oral Pulse Oximetry (%) 94 Oxygen Delivery Method Room Air Intake Visit Reasons: f/u DM, lipids Intake Note: Pt is here today for her f/u lipids and DM Allergies codeine [CODEINE] Adverse Reaction (Intermediate, Verified 03/25/25 12:53) N/V oxycodone [From PERCOCET] Adverse Reaction (Intermediate, Verified 03/25/25 12:53) N/V penicillin Allergy (Unknown, Uncoded 03/25/25 12:53) rash, hive Medication List - Last Reconciled 03/25/25 by Neelam Nobles MD ascorbic acid (vitamin C) 1 g orally Patient takes PRN when she feels a cold starting; cholecalciferol (vitamin D3) 50 mcg PO DAILY losartan-hydrochlorothiazide 100-12.5 mg 1 tab PO DAILY magnesium 250 mg PO DAILY metoprolol succinate ER 50 mg PO DAILY acwjexbk-lpb-glsg-FA-vit K-lut 8 mg iron-400 mcg-50 mcg (Centrum Silver Women) 1 tab PO DAILY omega-3 acid ethyl esters (Lovaza) 2 caps PO BID 3 months rosuvastatin 5 mg PO DAILY sumatriptan succinate 100 mg PO Q2-4H PRN MDD 2 tabs/24 hrs Tobacco use date assessed: 03/25/25 Fall risk assessment: No Falls in past year Last assessed Fall Risk: 03/25/25 Dental Screening Dental Screen Date: 03/25/25 Did you have a dental visit in the last 12 months?: Yes Did you have a dental problem in the last 6 months where you did not have access to dental care?: No Was dental information given to patient?: Patient has dentist ON [facility] Medical History (Updated 03/25/25 @ 13:10 by Neelam Nobles MD) Depression Positive colorectal cancer screening using Cologuard test Impaired fasting glucose ADD (attention deficit disorder) History of bilateral breast cancer Bilateral hearing loss Migraine headache Anxiety and depression Essential hypertension Mixed dyslipidemia Surgical History History of lumpectomy of left breast History of appendectomy History of lumpectomy of right breast Family History Father Mental health disorder Lung cancer Parkinson's disease Social History Household Members: None Housing: House Are you a primary district manager primary care sales to a significant other at home: No Do you presently have visiting nurse or other home services: No Patient Tobacco Use Status: Former Tobacco user Tobacco use type: Cigarette e-Cigarette/Vaping Use: Former Use service: No Current occupational status: retired Cognitive needs: No Hearing needs: No Vision needs: Yes Questionnaire PHQ-9 Over the last 2 weeks, how often have you been bothered by any of the following problems? 1. Little interest or pleasure in doing things: several days 2. Feeling down, depressed, or hopeless: more than half the days 3. Trouble falling or staying asleep, or sleeping too much: more than half the days 4. Feeling tired or having little energy: more than half the days 5. Poor appetite or overeating: more than half the days 6. Feeling bad about yourself - or that you are a failure or have let yourself or your family down: several days 7. Trouble concentrating on things, such as reading the newspaper or watching television: not at all 8. Moving or speaking so slowly that other people could have noticed. Or the opposite - being so fidgety or restless that you have been moving around a lot more than usual: not at all 9. Thoughts that you would be better off or of hurting yourself in some way: not at all Total score: 10 Source: Developed by Drs. Talon Grant, Bekah Riojas, Ambrocio Perez and colleagues, with an educational keyana from [employer]. Thrive Questionnaire Date Thrive assessed: 03/25/25 I am a: Patient What is your living situation today?: I have a steady place to live Within the past 12 months, did the food you bought not last and you didn't have the money to get more?: Never true Within the past 12 months, did you worry whether your food would run out before you got money to buy more?: Never true Do you have trouble paying for medicines?: No Do you have trouble getting transportation to medical appointments?: No Do you have trouble paying your heating and electricity bill?: No Do you have trouble taking care of your child, family member or friend?: No Do you have trouble with day-to-day activities such as bathing, preparing meals, shopping, managing finances, etc.?: No Are you currently unemployed and looking for a job?: No Are you interested in more education?: No Please select the resources that you would like help with: None Currently or been in a relationship where the following occur: No concerns reported THRIVE Score: 0 AUDIT C Alcohol Use Questionnaire (AUDIT-C) 1. How often do you have a drink containing alcohol?: 2-3 times a week 2. How many drinks containing alcohol do you have on a typical day when you are drinking?: 1 or 2 3. How often do you have six or more drinks on one occasion?: Never Total Score: 3 FRANCISCO-7 AMB Questionnaire FRANCISCO-7 Date FRANCISCO - 7 assessed: 03/25/25 Feeling nervous, anxious, or on edge: 1 = Several days Not being able to stop or control worryin = Several days Worrying too much about different things: 1 = Several days Trouble relaxin = More than half the days Being so restless that it is hard to sit still: 2 = More than half the days Becoming easily annoyed or irritable: 1 = Several days Feeling afraid as if something awful might happen: 0 = Not at all Total FRANCISCO-7 score (0-4 normal; 5-9 mild; 10-14 moderate; 15-21 severe): 8 Source: Developed by Drs. Talon Grant, Bekah Riojas, Ambrocio Perez and colleagues, with an educational keyana from [employer]. Physical exam (Primary Care) Vital Signs: Last Vital Signs Temp 98.4 F 03/25/25 12:35 Pulse 61 03/25/25 12:35 Resp 16 03/25/25 12:35 BP 120/80 03/25/25 12:35 Pulse Ox 94 03/25/25 12:35 Oxygen Delivery Method Room Air 03/25/25 12:35 BMI result Body Mass Index 30.3 Tobacco/Smoking Status: Tobacco use Status Tobacco use date assessed 03/25/25 03/25/25 12:42 Patient Tobacco Use Status Former Tobacco user 03/25/25 12:36 Tobacco use type Cigarette 03/25/25 12:36 e-Cigarette/Vaping Use Former Use 03/25/25 12:36 PHQ-9: PHQ-9 Score PHQ-9: Total score 10 03/25/25 12:54 Thrive Assessment: Date of Thrive Assessment Date Thrive assessed 03/25/25 03/25/25 12:42 Currently or been in a relationship where the following occur: No concerns reported Immunizations pneumoc 20-tamika conj-dip cr(PF) 0.5 mL IM syringe Performing Provider: Neelam Nobles MD [place] [facility] [place] [facility] Administered by: Francisca Peralta CMA on 03/25/25 13:18 Dose Route Admin Location Dispensed Lot Number Expiration Date NDC [employer] 0.5 mL IM Right Deltoid 0.5 mL [id number] 03/28/25 2096-1391-62 [employer] VIS Given Date VIS Provided VIS Publication Date 03/25/25 Single Vaccine 21 Eligibility Eligibility Date Funding Source Not [facility] Eligible 03/25/25 Private Results Reviewed Results Reviewed: Laboratory Tests 03/21/25 12:02 Estimat Average Glucose 126 Hemoglobin A1c % 6.0 Name: Tri Shafer Age/Sex: 69/F : 1955 Unit#: [id number] Attend Dr: Neelam Nobles MD Re03/21/25 Status: DEP REF Location: [facility] Disch: SPEC : [id number] CARROLL: 03/21/25 STATUS: COMP REQ : [id number] RECD: 03/21/25-[address]: Neelam Nobles MD COMP: 03/21/25-1428 ENTERED: 03/21/25-[address]: ORDERED: Met Prof Fast, AST, ALT, Lipid Panel, Vitamin D 25-OH Test Result Flag Reference Sodium 139 135-145 mmol/L Potassium 3.6 3.3-5.1 mmol/L CL 100 96-108 mmol/L CO2 28 22-29 mmol/L Gap 15 12-20 BUN 23 H 9-16 mg/dL Creat 1.01 0.5-1.4 mg/dL eGFR 54 Chronic Kidney Disease: Estimated GFR < 60 mL/min/1.73m2 Severe Kidney Disease: Estimated GFR < 15 mL/min/1.73m2 FBS 116 H 60-99 mg/dL A fasting glucose from 100-125 mg/dl is considered impaired (pre-diabetes). CA 9.7 8.4-10.2 mg/dL AST (GOT) 25 5-31 U/L ALT (GPT) 17 0-31 U/L Triglyceride 306 H <150 mg/dL Desirable Triglyceride: less than 150 mg/dL Borderline High Triglyceride 150-199 mg/dL High Triglyceride: 200-499 mg/dL Very High Triglyceride: greater than or equal to 5OO mg/dL Cholesterol 186 <200 mg/dL Desirable Cholesterol: less than 200 mg/dL Borderline High Cholesterol: 200-239 mg/dL High Cholesterol: greater than 239 mg/dL LDL Calculated 74 <100 mg/dL Desirable LDL: less than 100 mg/dL Near Optimal/Above Optimal LDL: 110-129 mg/dL Borderline High LDL: 130-159 mg/dL High LDL: 160-189 mg/dL Very High LDL: greater than or equal to 190 mg/dL HDL 51 >40 mg/dL Desirable HDL: greater than 40 mg/dL Note: This HDL assay may give artificially low results in patients with liver disease. Vitamin D 25-OH 79.0 >30 ng/mL Health Based Reference Values* < 20 ng/mL Deficient 20-30 ng/mL Insufficient > 30 ng/mL Sufficient Coding Diagnoses Impaired fasting glucose R73.01 Essential hypertension I10 Mixed dyslipidemia E78.2 ADD (attention deficit disorder) F98.8 Depression F32.A Positive colorectal cancer screening using Cologuard test R19.5 Assessment & Plan Assessment & Plan (1) Impaired fasting glucose: Code(s): R73.01 - Impaired fasting glucose Category: Medical (2) Essential hypertension: Code(s): I10 - Essential (primary) hypertension Category: Medical (3) Mixed dyslipidemia: Code(s): E78.2 - Mixed hyperlipidemia Category: Medical (4) ADD (attention deficit disorder): Comment: Previously on Ritalin, followed by Dr. Morales in the past Code(s): F98.8 - Other specified behavioral and emotional disorders with onset usually occurring in childhood and adolescence Category: Medical (5) Depression: Code(s): F32.A - Depression, unspecified Category: Medical (6) Positive colorectal cancer screening using Cologuard test: Code(s): R19.5 - Other fecal abnormalities Category: Medical Orders: Orders 2 Pneumococcal 20 Immunization Today Z23 - Encounter for immunization Referrals Psychiatry Referral F32.A - Depression, unspecified, F98.8 - Other specified behavioral and emotional disorders with onset usually occurring in childhood and adolescence Gastroenterology Referral R19.5 - Other fecal abnormalities Medications: New bupropion HCl XL (Wellbutrin XL) 150 mg PO QAM 30 tabs 2RF
== END 2025-03-25 14:08 | disposition home or self-care (01) ==
LOC: HO.HMCC 11:24
PROVIDERS: PCP Internal Medicine; Visit Provider Internal Medicine
DX: Z23 Encounter for immunization (principal)

== ENCOUNTER → 2025-03-25 11:23 | Outpatient (BNVA) | payer MEDICARE, SELFPAY | PROVIDERS: PCP Internal Medicine; Visit Provider Internal Medicine | DX: Z23 Encounter for immunization (principal); E78.2 Mixed hyperlipidemia; R73.01 Impaired fasting glucose; I10 Essential (primary) hypertension; F98.8 Other specified behavioral and emotional disorders with onset usually occurring in childhood and adolescence; F32.9 Major depressive disorder, single episode, unspecified; R19.5 Other fecal abnormalities | CPT/HCPCS: 90471; 90677; 96127; 99212 ==

== ENCOUNTER 2025-05-26 11:52 | Outpatient (REF) | payer MEDICARE, SELFPAY ==
[2025-05-26 13:56] LABS: Hemoglobin A1C 133.9681 umol/L; Total Hemoglobin (HGBA1C) 3179.0918 umol/L
[2025-05-26 15:09] LABS: Alanine Aminotransferase 23 U/L (0-31); Anion Gap 15 (12-20); Aspartate Amino Transferase 24 U/L (5-31); Blood Urea Nitrogen 21 mg/dL (9-16); Calcium 9.0 mg/dL (8.4-10.2); Carbon Dioxide 26 mmol/L (22-29); Chloride 104 mmol/L (96-108); Cholesterol 186 mg/dL (<200); Estimated Glomerular Filt Rate 42; HDL Cholesterol 59 mg/dL (>40); Potassium 3.5 mmol/L (3.3-5.1); Sodium 141 mmol/L (135-145); Triglycerides 231 mg/dL (<150)
== END 2025-05-26 11:53 | disposition home or self-care (01) ==
LOC: HO.HMGCLDS 11:52
PROVIDERS: PCP Internal Medicine; Visit Provider Internal Medicine
DX: E78.2 Mixed hyperlipidemia (principal); I10 Essential (primary) hypertension; R73.01 Impaired fasting glucose; F32.A Depression, unspecified; F41.9 Anxiety disorder, unspecified
CPT/HCPCS: 36415; 80048; 80061; 83036; 84450; 84460

== ENCOUNTER 2025-05-28 13:22 | Outpatient (AMB) | payer MEDICARE, SELFPAY ==
--- NOTE | 2025-05-28 13:36 | A.OFFPC_ITS ---
Vital Signs 05/28/25 13:37 Height 5 ft Weight 149 lb BMI 29.1 BP 100/62 Blood Pressure Location Rt brachial Position Sitting Respiration 15 Pulse 71 Pulse Source Pulse Oximeter Temp 98.3 F Temp Source Oral Pulse Oximetry (%) 95 Oxygen Delivery Method Room Air Intake Visit Reasons: Annual PE - see comments Allergies codeine (CODEINE) Adverse Reaction (Intermediate, Verified 06/01/25 22:27) N/V oxycodone (From PERCOCET) Adverse Reaction (Intermediate, Verified 06/01/25 22:27) N/V penicillin Allergy (Unknown, Uncoded 06/01/25 22:27) rash, hive Medication List - Last Reconciled 06/01/25 by Neelam Nobles MD ascorbic acid (vitamin C) 1 g orally Patient takes PRN when she feels a cold starting; bupropion HCl XL (Wellbutrin XL) 150 mg PO QAM cholecalciferol (vitamin D3) 50 mcg PO DAILY losartan-hydrochlorothiazide 100-12.5 mg 1 tab PO DAILY magnesium 250 mg PO DAILY metoprolol succinate ER 50 mg PO DAILY tvvrxjgi-xte-lhsw-FA-vit K-lut 8 mg iron-400 mcg-50 mcg (Centrum Silver Women) 1 tab PO DAILY omega-3 acid ethyl esters (Lovaza) 2 caps PO BID 3 months rosuvastatin 5 mg PO DAILY sumatriptan succinate 100 mg PO Q2-4H PRN MDD 2 tabs/24 hrs Tobacco use date assessed: 05/28/25 Fall risk assessment: 2 + Falls in past year Last assessed Fall Risk: 05/28/25 Dental Screening Dental Screen Date: 05/28/25 Did you have a dental visit in the last 12 months?: Yes Did you have a dental problem in the last 6 months where you did not have access to dental care?: No Was dental information given to patient?: Patient has dentist HPI Annual PE - see comments HPI Details 69 year-old lady with history of prediab etes, hypertension, mixed dyslipidemia, and history of ADD, here today for physical exam. She is up-to-date with her screening mammogram and bone density scan both done 10/10/2024, which showed negative findings except for beginning osteopenia in her left femoral neck. No history of fractures. She had a positive Cologuard test in 2021 and has been referred to [facility], per patient's request for her colon cancer screening, but this was later [place] [facility] [place] [facility] [place] [facility] was out of network.. Patient states however that she still has not received any appointment date yet for her colon cancer screening since last year August 2024. [facility] Medical History Depression Positive colorectal cancer screening using Cologuard test Impaired fasting glucose ADD (attention deficit disorder) History of bilateral breast cancer Bilateral hearing loss Migraine headache Anxiety and depression Essential hypertension Mixed dyslipidemia Surgical History History of lumpectomy of left breast History of appendectomy History of lumpectomy of right breast Family History Father Mental health disorder Lung cancer Parkinson's disease Social History Household Members: None Housing: House Are you a primary transitional care nurse to a significant other at home: No Do you presently have visiting nurse or other home services: No Patient Tobacco Use Status: Former Tobacco user Tobacco use type: Cigarette e-Cigarette/Vaping Use: Former Use service: No Current occupational status: retired Cognitive needs: No Hearing needs: No Vision needs: Yes Questionnaire Thrive Questionnaire Date Thrive assessed: 03/25/25 I am a: Patient What is your living situation today?: I have a steady place to live Within the past 12 months, did the food you bought not last and you didn't have the money to get more?: Never true Within the past 12 months, did you worry whether your food would run out before you got money to buy more?: Never true Do you have trouble paying for medicines?: No Do you have trouble getting transportation to medical appointments?: No Do you have trouble paying your heating and electricity bill?: No Do you have trouble taking care of your child, family member or friend?: No Do you have trouble with day-to-day activities such as bathing, preparing meals, shopping, managing finances, etc.?: No Are you currently unemployed and looking for a job?: No Are you interested in more education?: No Please select the resources that you would like help with: None Currently or been in a relationship where the following occur: No concerns reported THRIVE Score: 0 FRANCISCO-7 AMB Questionnaire FRANCISCO-7 Date FRANCISCO - 7 assessed: 03/25/25 Source: Developed by Drs. Talon Grant, Bekah Riojas, Ambrocio Perez and colleagues, with an educational keyana from [employer]. Review of Systems Const Denies fatigue, Denies headache(s) and Denies poor appetite ENT Denies vertigo, Denies headache(s), Reports hearing loss (Wears hearing aids), Denies nasal congestion and Denies disequilibrium Card Denies chest pain, Denies rapid heart rate, Denies irregular heart rhythm and Denies dyspnea Resp Denies cough and Denies dyspnea GI Denies abdominal pain, Denies melena, Denies bloating, Denies hematochezia, Denies change in bowel habits, Denies heartburn and Denies nausea Reports no additional complaints Musc Reports no additional complaints Skin/Breast Denies breast swelling, Denies breast skin changes, Denies breast pain, Denies breast mass and Denies rash Neuro Denies vertigo, Denies headache(s), Denies Sensory deficit (Neuro) and Denies disequilibrium Psych Reports as per HPI Endo Reports no additional complaints and Denies fatigue Pablo/Lymph Denies easy bleeding and Denies easy bruising Aller/Immun Reports no additional complaints Physical exam (Primary Care) Vital Signs: Last Vital Signs Temp 98.3 F 05/28/25 13:37 Pulse 71 05/28/25 13:37 Resp 15 05/28/25 13:37 BP 100/62 05/28/25 13:37 Pulse Ox 95 05/28/25 13:37 Oxygen Delivery Method Room Air 05/28/25 13:37 BMI result Body Mass Index 29.1 Tobacco/Smoking Status: Tobacco use Status Tobacco use date assessed 05/28/25 05/28/25 13:40 Patient Tobacco Use Status Former Tobacco user 05/28/25 13:40 Tobacco use type Cigarette 05/28/25 13:40 e-Cigarette/Vaping Use Former Use 05/28/25 13:40 Thrive Assessment: Date of Thrive Assessment Date Thrive assessed 03/25/25 05/28/25 13:40 Currently or been in a relationship where the following occur: No concerns reported Const Other: Alert oriented x3, no acute distress noted ambulatory normal gait Orientation/consciousness: patient oriented x3 HENMT Head: Yes normocephalic Ears: hearing grossly impaired (Wears hearing aids) General nose exam: Normal external nose present and No nasal discharge present Face and sinus: Yes face symmetric Mouth: moist mucous membranes Eyes Alignment and Position: alignment normal Pupils: Equal, round and reactive pupils present EOM: EOMs intact bilaterally Neck Other: Supple, no lymphadenopathy, thyroid gland nonpalpable Chest Breast/axilla palpation: normal palpation of the breasts Resp Auscultation: clear to auscultation bilaterally Cardio Other: S1-S2 present regular rate and rhythm GI Other: Normal bowel sounds, soft, nontender, no mass palpated General: Yes no CVA tenderness Back/Spine/Pelvis Back: no CVA tenderness and No back tenderness Skin General skin exam: no rashes or lesions noted Neuro General: patient oriented x3, moves all extremities, Normal light touch and pain sensation and no focal motor deficits Cranial nerves: Yes Equal, round and reactive pupils present Sensory Exam: No Sensory deficit (Neuro) Extrem General: Yes full ROM, Yes no joint enlargement, Yes no pedal edema and Yes normal gait Psych Appearance: grossly normal Mental Status: mental status grossly normal Speech and movement: Normal speech and movement present Affect: Blunted affect present Attitude: cooperative Thought process: Normal thought process present Results Reviewed Results Reviewed: Name: Tri Shafer Age/Sex: 69/F : 1955 Unit#: [id number] Attend Dr: Neelam Nobles MD Re05/26/25 Status: DEP REF Location: [facility] Disch: SPEC : [id number] CARROLL: 05/26/25 STATUS: COMP REQ : [id number] RECD: 05/26/[address]: Neelam Nobles MD COMP: 05/26/25-1508 ENTERED: 05/26/25-[address]: ORDERED: Met Prof Fast, AST, ALT, Lipid Panel Test Result Flag Reference Sodium 141 135-145 mmol/L Potassium 3.5 3.3-5.1 mmol/L CL 104 96-108 mmol/L CO2 26 22-29 mmol/L Gap 15 12-20 BUN 21 H 9-16 mg/dL Creat 1.25 0.5-1.4 mg/dL eGFR 42 Chronic Kidney Disease: Estimated GFR < 60 mL/min/1.73m2 Severe Kidney Disease: Estimated GFR < 15 mL/min/1.73m2 FBS 105 H 60-99 mg/dL A fasting glucose from 100-125 mg/dl is considered impaired (pre-diabetes). CA 9.0 # 8.4-10.2 mg/dL AST (GOT) 24 5-31 U/L ALT (GPT) 23 0-31 U/L Triglyceride 231 H <150 mg/dL Desirable Triglyceride: less than 150 mg/dL Borderline High Triglyceride 150-199 mg/dL High Triglyceride: 200-499 mg/dL Very High Triglyceride: greater than or equal to 5OO mg/dL Cholesterol 186 <200 mg/dL Desirable Cholesterol: less than 200 mg/dL Borderline High Cholesterol: 200-239 mg/dL High Cholesterol: greater than 239 mg/dL LDL Calculated 81 <100 mg/dL Desirable LDL: less than 100 mg/dL Near Optimal/Above Optimal LDL: 110-129 mg/dL Borderline High LDL: 130-159 mg/dL High LDL: 160-189 mg/dL Very High LDL: greater than or equal to 190 mg/dL HDL 59 >40 mg/dL Desirable HDL: greater than 40 mg/dL Note: This HDL assay may give artificially low results in patients with liver disease. Laboratory Tests 05/26/25 11:58 Estimat Average Glucose 126 Hemoglobin A1c % 6.0 Coding Level of Care Code Est Pt Prev Care >65y(06394) Diagnoses Annual visit for general adult medical examination with abnormal findings Z00.01 Mixed dyslipidemia E78.2 Essential hypertension I10 Impaired fasting glucose R73.01 Positive colorectal cancer screening using Cologuard test R19.5 Attention deficit disorder, unspecified type F98.8 Attention deficit type: unspecified type Migraine with aura and without status migrainosus, not intractable G43.109 Migraine type: migraine (< 15 days per month) with aura Status migrainosus presence: without status migrainosus Intractability: not intractable Anxiety and depression F41.9; F32.A Assessment & Plan Assessment & Plan (1) Annual visit for general adult medical examination with abnormal findings: Code(s): Z00.01 - Encounter for general adult medical examination with abnormal findings Plan: Results of recent fasting lab results reviewed with patient. Recommended dental visit every 6 months and regular eye exams, at least every 2 years. Take adequate calcium in diet and vitamin-D 3 at 2000 IU per cap once a day, in addition to weight-bearing exercises to help maintain good muscle tone and weight control. Instructed to do self-breast exam, up-to-date with her screening mammogram and bone density scan. Up-to-date with her adult vaccines (2) Mixed dyslipidemia: Code(s): E78.2 - Mixed hyperlipidemia Category: Medical Plan: Latest fasting lipids showed elevated triglycerides with normal LDL cholesterol. Reminded about adherence to a healthy diet cutting back on lot of fast food, processed food and saturated fats. Continue [place] 3 fatty acid supplements 2 capsules twice a day and rosuvastatin 5 mg daily. (3) Essential hypertension: Code(s): I10 - Essential (primary) hypertension Category: Medical Plan: Blood pressure at goal of less than 130/80. Continue with current medication. Reinforced importance of following a low sodium diet, getting regular exercise, and lowering stress levels. (4) Impaired fasting glucose: Code(s): R73.01 - Impaired fasting glucose Category: Medical Plan: Your previous fasting blood sugars were elevated above 100 mg/dL. Impaired glucose metabolism increases the risk for developing diabetes mellitus type 2, as well as heart attack and stroke later on. Lifestyle changes that promotes weight loss, healthy eating habits, and regular exercise are important, and can prevent the progression to diabetes (5) Positive colorectal cancer screening using Cologuard test: Code(s): R19.5 - Other fecal abnormalities Category: Medical Plan: Referred to [facility] at [facility] for her colon cancer screening due to positive Cologuard test. Awaiting appointment (6) ADD (attention deficit disorder): Comment: Previously on Ritalin, followed by Dr. Morales in the past Code(s): F98.8 - Other specified behavioral and emotional disorders with onset usually occurring in childhood and adolescence Category: Medical Qualifiers: Attention deficit type: unspecified type Qualified Code(s): F98.8 - Other specified behavioral and emotional disorders with onset usually occurring in childhood and adolescence Plan: Currently on bupropion HCL XL 150 mg 1 tablet daily in the morning (7) Migraine headache: Code(s): G43.909 - Migraine, unspecified, not intractable, without status migrainosus Category: Medical Qualifiers: Migraine type: migraine (< 15 days per month) with aura Status migrainosus presence: without status migrainosus Intractability: not intractable Qualified Code(s): G43.109 - Migraine with aura, not intractable, without status migrainosus Plan: Takes sumatriptan as needed for acute episodes of migraine continue taking magnesium 50 mg daily (8) Anxiety and depression: Code(s): F41.9 - Anxiety disorder, unspecified; F32.A - Depression, unspecified Category: Medical Plan: Controlled on bupropion HCL XL 150 mg in the morning Orders: Orders Lipid Panel 10/20/25 E78.2 - Mixed hyperlipidemia, I10 - Essential (primary) hypertension, R73.01 - Impaired fasting glucose Hemoglobin A1c 10/20/25 E78.2 - Mixed hyperlipidemia, I10 - Essential (primary) hypertension, R73.01 - Impaired fasting glucose Alanine Aminotransferase 10/20/25 E78.2 - Mixed hyperlipidemia, I10 - Essential (primary) hypertension, R73.01 - Impaired fasting glucose Aspartate Amino Transferase 10/20/25 E78.2 - Mixed hyperlipidemia, I10 - Essential (primary) hypertension, R73.01 - Impaired fasting glucose Basic Metabolic Panel Fasting 10/20/25 E78.2 - Mixed hyperlipidemia, I10 - Essential (primary) hypertension, R73.01 - Impaired fasting glucose Medications: Refilled bupropion HCl XL (Wellbutrin XL) 150 mg PO QAM 90 tabs 4RF
[2025-05-28 13:37] VITALS: BP 100/62; PULSE 71; RESP 15; TEMP 36.8; O2SAT 95; BMI 29.1
== END 2025-05-28 14:41 | disposition home or self-care (01) ==
LOC: HO.HMCC 13:23
PROVIDERS: PCP Internal Medicine; Visit Provider Internal Medicine
DX: Z00.01 Encounter for general adult medical examination with abnormal findings (principal); E78.2 Mixed hyperlipidemia; I10 Essential (primary) hypertension; R73.01 Impaired fasting glucose; R19.5 Other fecal abnormalities; F98.8 Other specified behavioral and emotional disorders with onset usually occurring in childhood and adolescence; G43.109 Migraine with aura, not intractable, without status migrainosus; F41.9 Anxiety disorder, unspecified; F32.A Depression, unspecified

== ENCOUNTER → 2025-05-28 13:22 | Outpatient (BNVA) | payer MEDICARE, SELFPAY | PROVIDERS: PCP Internal Medicine; Visit Provider Internal Medicine | DX: Z00.01 Encounter for general adult medical examination with abnormal findings (principal); E78.2 Mixed hyperlipidemia; I10 Essential (primary) hypertension; R73.01 Impaired fasting glucose; R19.5 Other fecal abnormalities; F98.8 Other specified behavioral and emotional disorders with onset usually occurring in childhood and adolescence; G43.109 Migraine with aura, not intractable, without status migrainosus; F41.9 Anxiety disorder, unspecified; F32.A Depression, unspecified | CPT/HCPCS: 99397 ==

== ENCOUNTER 2025-10-23 13:46 | Outpatient (REF) | payer MEDICARE, SELFPAY ==
--- NOTE | ~2025-10-23 | MM_ITS ---
EXAMINATION: MM SCREENING DIGITAL BREAST TOMOSYNTHESIS, BILATERAL CLINICAL INFORMATION: Screening. Asymptomatic. COMPARISON: Mammography: Comparison is made with available priors TECHNIQUE: Digital breast mammography with tomosynthesis is performed in both the craniocaudal and mediolateral oblique views along with computer-aided detection (CAD). FINDINGS: There are scattered areas of fibroglandular density. Bilateral posttreatment changes are stable. There are no significant masses, abnormal calcifications, or other abnormalities. MM/MM tomosynthesis screening BI IMPRESSION: No mammographic evidence of malignancy. ASSESSMENT: BI-RADS Category 2: Benign RECOMMENDATION: Routine annual mammography screening. 1 year F/U This examination should not preclude the clinical evaluation of a suspicious palpable abnormality. This patient's information was entered into a reminder system with a target due date for their next mammogram. Electronically signed by: Laurie Arizmendi DO 10/24/2025 02:26 PM [facility]
== END 2025-10-23 13:47 | disposition home or self-care (01) ==
LOC: HO.MAMMO 13:46
PROVIDERS: Visit Provider Internal Medicine
DX: Z12.31 Encounter for screening mammogram for malignant neoplasm of breast (principal)
CPT/HCPCS: 77063; 77067

== ENCOUNTER → 2025-10-23 14:00 | Outpatient (BNV) | payer MEDICARE, SELFPAY | PROVIDERS: Visit Provider Internal Medicine | DX: Z12.31 Encounter for screening mammogram for malignant neoplasm of breast (principal) | CPT/HCPCS: 77063; 77067 ==